=== PATIENT | male | born 1980 | race Caucasian/White ===

== ENCOUNTER → 2018-01-23 12:58 | Outpatient (CLI) | payer MEDICAID, SELFPAY ==
[2018-01-23 13:26] VITALS: PULSE 59
== END ==
PROVIDERS: Family Provider Nurse Practitioner Family; PCP Emergency Medicine; Visit Provider Nurse Practitioner Family
DX: R06.2 Wheezing (principal)
CPT/HCPCS: 94060; 94640

== ENCOUNTER → 2019-07-20 09:52 | Outpatient (CLI) | payer MEDICAID, SELFPAY ==
[2019-07-20 11:51] LABS: Basophils # 0.1 K/mm3 (0-0.2); Basophils % 0.5 % (0.1-2.0); Eosinophils # 0.5 K/mm3 (0.0-0.4); Eosinophils % 4.4 % (0.1-12.0); Hematocrit 50.6 % (42.0-52.0); Hemoglobin 16.7 g/dL (14.1-18.0); Lymphocytes % 18.9 % (10-50); Mean Corpuscular Hemoglobin 33.1 pg (27.0-31.2); Mean Corpuscular Volume 100.3 fl (80-94); Mean Platelet Volume 7.1 fl (7.4-10.4); Monocytes # 0.7 K/mm3 (0.1-1.0); Monocytes % 6.9 % (1.7-9.3); Neutrophils # 7.2 K/mm3 (1.8-7.8); Neutrophils % 69.4 % (37.0-80.0); Platelet Count 217 K/mm3 (142-424); Red Blood Count 5.04 M/mm3 (4.60-6.20); Red Cell Distribution Width 12.6 % (11.5-17.5); White Blood Count 10.4 K/mm3 (4.8-10.8)
[2019-07-20 12:14] LABS: Alanine Aminotransferase 27 U/L (12-78); Albumin Level 3.6 gm/dL (3.4-5.0); Albumin/Globulin Ratio 1.1 (1.1-1.8); Alkaline Phosphatase 58 U/L (46-116); Aspartate Amino Transferase 24 U/L (15-37); Bilirubin,Total 0.3 mg/dL (0.2-1.0); Blood Urea Nitrogen 16 mg/dL (7-18); Calcium 8.8 mg/dL (8.5-10.1); Carbon Dioxide 32 mmol/L (21.0-32.0); Chloride 102 mmol/L (98-107); Creatinine,Serum 1.17 mg/dL (0.70-1.30); Estimated Glomerular Filt Rate 69 ml/min (>60); GFR (African American) 84 ML/MIN (>60); Globulin 3.3 gm/dl (1.3-3.2); Glucose 77 mg/dL (74-106); Sodium 140 mmol/L (136-145); Total Protein,Serum 6.9 gm/dL (6.4-8.2); Valproic Acid, (Depakene) 50.6 ug/mL (50-100)
== END ==
PROVIDERS: Visit Provider Psychiatry & Neurology Psychiatry
DX: F31.9 Bipolar disorder, unspecified (principal)
CPT/HCPCS: 36415; 80053; 80164; 85025

== ENCOUNTER → 2019-08-25 15:19 | Outpatient (CLI) | payer MEDICAID, SELFPAY ==
--- NOTE | 2019-08-25 15:22 | XR_ITS ---
PROCEDURE: XR CHEST 2V CLINICAL HISTORY: cough Cough, congestion, smoker COMPARISON: CXR CHEST(2 VIEWS-NOT PORTABLE) from 05/20/2017 FINDINGS: The cardiomediastinal silhouette and pulmonary vascularity are within normal limits. There is mild hyperinflation. No lobar consolidation or collapse. Minimal lumbar curvature convex left. IMPRESSION: No change with no acute finding Dictated by: Raffaele Stephens MD 08/25/2019 15:51 Electronically signed by Raffaele Stephens MD in [place] 08/25/2019 15:51
== END ==
PROVIDERS: PCP Nurse Practitioner Family; Visit Provider Nurse Practitioner Family
DX: R05 Cough (principal); F17.200 Nicotine dependence, unspecified, uncomplicated; R06.2 Wheezing
CPT/HCPCS: 71046

== ENCOUNTER → 2020-09-06 17:36 | Outpatient (CLI) | payer MEDICAID, SELFPAY ==
[2020-09-06 18:29] LABS: Erythrocyte Sedimentation Rate 1 mm/hr (0-15)
[2020-09-06 18:31] LABS: Chloride 99 mmol/L (98-107); Potassium 4.1 mmoL/L (3.5-5.1); Sodium 141 mmol/L (136-145)
[2020-09-06 18:33] LABS: Alanine Aminotransferase 20 U/L (12-78); Alkaline Phosphatase 50 U/L (38-126); Aspartate Amino Transferase 31 U/L (17-59); Bilirubin,Total 0.5 mg/dl (0.2-1.3); Blood Urea Nitrogen 22 mg/dl (9-20); Estimated Glomerular Filt Rate 67 ml/min (>60); GFR (African American) 81 ML/MIN (>60)
[2020-09-06 18:34] LABS: Albumin Level 4.5 g/dl (3.5-5.0); Albumin/Globulin Ratio 1.5 (1.1-1.8); Anion Gap 14.1 mEq/L (5-15); Calcium 9.9 mg/dl (8.4-10.2); Carbon Dioxide 32 mmol/L (22.0-30.0); Cholesterol 205 mg/dl (140-200); Globulin 3.1 g/dL (1.3-3.2); Glucose 71 mg/dl (74-100); HDL Cholesterol 41 mg/dl (40-60); Total Protein,Serum 7.6 g/dl (6.3-8.2); Triglycerides 217 mg/dl (30-150); VLDL Cholesterol 43 mg/dL (0-40)
[2020-09-06 18:39] LABS: Basophils # 0.2 K/mm3 (0-0.2); Basophils % 1.5 % (0.1-2.0); Eosinophils # 0.7 K/mm3 (0.0-0.4); Eosinophils % 4.4 % (0.1-12.0); Hematocrit 52.9 % (42.0-52.0); Hemoglobin 17.5 g/dL (14.1-18.0); Lymphocytes # 2.4 K/mm3 (0.7-4.5); Lymphocytes % 14.9 % (10-50); Mean Corpuscular HGB Conc 33.1 g/dL (31.8-35.4); Mean Corpuscular Volume 99.6 fl (80-94); Monocytes # 0.8 K/mm3 (0.1-1.0); Monocytes % 5.1 % (1.7-9.3); Neutrophils # 11.8 K/mm3 (1.8-7.8); Neutrophils % 74.1 % (37.0-80.0); Platelet Count 191 K/mm3 (142-424); Red Blood Count 5.31 M/mm3 (4.60-6.20); Red Cell Distribution Width 15.1 % (11.5-17.5); White Blood Count 15.9 K/mm3 (4.8-10.8)
[2020-09-06 18:41] LABS: MANUAL DIFFERENTIAL MANUAL DIFFERENTIAL (MANUAL DIFF)
[2020-09-06 18:45] LABS: Direct LDL Cholesterol 122.44 mg/dL (100-129)
[2020-09-06 18:49] LABS: Free T4 (Free Thyroxine) 0.99 ng/dl (0.78-2.19)
[2020-09-06 18:55] LABS: 25-OH Vitamin D, Total 46.3 ng/mL (30-100)
[2020-09-06 19:04] LABS: Thyroid Stimulating Hormone 4.52 uIU/mL (0.465-4.68)
[2020-09-06 19:26] LABS: Eosinophils % 1 % (0-3); Lymphocytes % 22 % (10-50); Monocytes % 4 % (2-9); Neutrophils % 73 % (42-76); RBC Morphology Normal; Total Cells Counted 100
[2020-09-06 19:27] LABS: Platelet Estimate Normal; Stomatocytes 1+
== END ==
PROVIDERS: Visit Provider Emergency Medicine
DX: R53.83 Other fatigue (principal); E55.9 Vitamin D deficiency, unspecified
CPT/HCPCS: 80053; 80061; 82306; 84439; 84443; 85007; 85025; 85651

== ENCOUNTER → 2020-09-21 10:33 | Outpatient (CLI) | payer MEDICAID, SELFPAY ==
--- NOTE | 2020-09-21 10:44 | XR_ITS ---
PROCEDURE: XR CERVICAL SPINE 5V CLINICAL INDICATION: back pain COMPARISON: No exams were available for comparison FINDINGS: No fracture or dislocation. No lytic or blastic change. There is normal mineralization. The joint spaces are well-preserved. No significant degenerative/arthritic changes. No erosive changes evident. Other findings:There is straightening/reversal of the normal lordosis which may be due to patient positioning or muscle spasm.. The head is slightly tilted toward. IMPRESSION: Reversal of cervical lordosis which could be due to patient positioning muscle spasm otherwise negative Dictated by: Raffaele Stephens MD 09/21/2020 14:49 Raffaele Stephens MD in [place] 09/21/2020 14:49
--- NOTE | 2020-09-21 10:44 | XR_ITS ---
PROCEDURE: XR LUMBAR SPINE MIN 4V CLINICAL INDICATION: back pain Low back pain COMPARISON: No exams were available for comparison FINDINGS: There is mild lumbar scoliosis convex left. Mild retrolisthesis of L4 3 mm. There does appear to be a spondylitic defect involving the pars interarticularis left at L5. The pars interarticularis on the right appears to be. No fracture or dislocation. No lytic or blastic change. There is reversal of the upper lumbar lordosis. Mild degenerative disc disease is present at L2-L3 and L3-L4. IMPRESSION: Lumbar scoliosis with degenerative changes. Possible pars defect on the left at L5. CT or MRI may confirm Dictated by: Raffaele Stephens MD 09/21/2020 14:48 Raffaele Stephens MD in [place] 09/21/2020 14:48
== END ==
PROVIDERS: PCP Emergency Medicine; Visit Provider Emergency Medicine
DX: M54.2 Cervicalgia (principal); M54.5 Low back pain
CPT/HCPCS: 72050; 72110

== ENCOUNTER → 2020-10-14 10:49 | Outpatient (CLI) | payer MEDICAID, SELFPAY ==
--- NOTE | 2020-10-14 10:53 | MR_ITS ---
PROCEDURE: MR LUMBAR SPINE WO CON CLINICAL INDICATION: abn xray Low back pain with bilateral leg pain and numbness and tingling COMPARISON: CR XR LUMBAR SPINE MIN 4V from 09/21/2020 TECHNIQUE: Standard multiplanar multiecho sequences are performed without contrast. 3-D MIP and myelographic images are also rendered and reviewed FINDINGS: There is normal alignment. The spinal cord ends at the L1 level. There is mild lumbar scoliosis convex left. L1-L2: Unremarkable. L2-L3: Mild degenerative disc disease with mild bulging disc and mild facet and ligamentum hypertrophy. L3-L4: Mild degenerative disc disease. L4-5: Mild facet hypertrophic change with mild left foraminal narrowing. L5-S1: There is mild degenerative disc disease with endplate hypertrophic change posteriorly with mild bulging disc. There was a question of a pars defect of the lumbar spine on the left at L5 which is not confirmed on the MRI. There are mild facet hypertrophic changes with mild left foraminal narrowing. There is thinning of the pars interarticularis at L5 on both sides but no definite defect. There is approximately 3 mm anterolisthesis of L5. IMPRESSION: 1. Degenerative changes as described above. Please see above for detailed description at each level. 2. No extruded herniated disc or canal stenosis. Dictated by: Raffaele Stephens MD 10/15/2020 12:11 Raffaele Stephens MD in [place] 10/15/2020 12:11
== END ==
PROVIDERS: PCP Emergency Medicine; Visit Provider Physician Assistant
DX: M43.06 Spondylolysis, lumbar region (principal); M54.9 Dorsalgia, unspecified
CPT/HCPCS: 72148; 76376

== ENCOUNTER 2020-12-18 18:34 | Inpatient (IN) | payer MEDICAID, SELFPAY ==
[2020-12-18] VITALS (16 sets, daily range): BP systolic 116–165; BP diastolic 65–95; PULSE 57–73; RESP 12–24; TEMP 36.6–36.7; O2SAT 93–100; BMI 19.1; BMI 20.8
--- NOTE | 2020-12-18 18:52 | XR_ITS ---
PROCEDURE: XR CHEST 2V CLINICAL HISTORY: PAIN COMPARISON: CR CXR CHEST(2 VIEWS-NOT PORTABLE) from 05/20/2017 CR XR CHEST 2V from 08/25/2019 CR XR RIBS RT MIN 3V W CXR1V from 12/18/2020 FINDINGS: Borderline emphysematous changes seen with hyperexpansion of the lung kaiser. There is no definite pneumonic infiltrate. There is a small right-sided pneumothorax right lower lateral chest with a small amount of fluid at the right costophrenic angle. There is no obvious fracture involving ribs 1 through 10, the 11th and 12th ribs are not adequately evaluated on this film. IMPRESSION: Borderline emphysematous change, small right sided pneumothorax Dictated by: Dr. Blaise Felton MD 12/18/2020 19:54 Dr. Blaise Felton MD in [place] 12/18/2020 19:54
--- NOTE | 2020-12-18 18:52 | XR_ITS ---
PROCEDURE: XR RIBS RT MIN 3V W CXR1V CLINICAL INDICATION: PAIN after a fall on ice COMPARISON: CR CXR CHEST(2 VIEWS-NOT PORTABLE) from 05/20/2017 CR XR CHEST 2V from 08/25/2019 CR XR CHEST 2V from 12/18/2020 FINDINGS: I do not know the time interval between the PA and lateral chest and right rib series however there appears to be interval increase in size of the right-sided pneumothorax since the chest film was obtained. The pneumothorax extends from the apex to the right costophrenic angle. There could be a mild degree of tension. There is a small amount of fluid at the right costophrenic angle. There is no definite right rib fracture identified. There is mild levo scoliotic curvature of the lumbar spine. IMPRESSION: Mild to moderate size right hydro pneumothorax which could be under a mild degree of tension with a small amount of fluid at the right costophrenic angle Dictated by: Dr. Blaise Felton MD 12/18/2020 20:00 Dr. Blaise Felton MD in [place] 12/18/2020 20:00
--- NOTE | 2020-12-18 18:53 | XR_ITS ---
PROCEDURE: XR SCAPULA RT CLINICAL INDICATION: PAIN COMPARISON: No exams were available for comparison FINDINGS: The scapula is intact with no definite fracture seen. The soft tissues right upper chest wall appear grossly normal. Again noted is the right-sided pneumothorax IMPRESSION: Right scapula negative for fracture Dictated by: Dr. Blaise Felton MD 12/18/2020 20:04 Dr. Blaise Felton MD in [place] 12/18/2020 20:04
--- NOTE | 2020-12-18 18:54 | XR_ITS ---
PROCEDURE: XR SHOULDER RT MIN 2V CLINICAL INDICATION: PAIN COMPARISON: No exams were available for comparison FINDINGS: The clavicle is intact and the AC joint appears normal. The humeral head and glenoid are normal. There are no soft tissue calcifications. The right-sided pneumothorax is again noted. IMPRESSION: No acute osseous findings. Dictated by: Dr. Blaise Felton MD 12/18/2020 20:02 Dr. Blaise Felton MD in [place] 12/18/2020 20:02
--- NOTE | 2020-12-18 19:06 | HMH.EDGENADL ---
ED Disposition Clinical Impression: Pneumothorax on right Disposition: Admitted as Observation Condition on Discharge: Good - Critical Care Critical Care Time: No Attestation: On 12/18/20, the high probability of a clinically significant, sudden or life threatening deterioration of the following system(s) required my full and direct attention, intervention and personal management. The time I documented below is in addition to time spent performing reported procedures but includes the following listed in this critical care notation. Medical Decision Making - Medical Records Medical records reviewed: Yes: I reviewed the patient's medical records. - Yifan Inquiry Pt receiving controlled substance: No Vital Signs: 12/18/20 18:36 12/18/20 19:30 12/18/20 20:30 Temperature 98 F Temperature Source Oral Pulse Rate [Radial] 69 67 61 Respiratory Rate 24 16 Blood Pressure [Right Arm] 137/65 145/94 H 143/82 H Blood Pressure Mean [Right Arm] 89 111 102 Blood Pressure Source [Right Arm] Automatic Cuff Automatic Cuff Blood Pressure Position [Right Arm] Sitting Supine Supine 02 Sat by Pulse Oximetry 94 L 100 93 L Oxygen Delivery Method Room Air Nasal Cannula Nasal Cannula Oxygen Flow Rate (LPM) 2 2 12/18/20 21:00 12/18/20 21:30 12/18/20 21:35 Temperature Temperature Source Pulse Rate [Radial] 63 66 66 Respiratory Rate 19 15 14 Blood Pressure [Right Arm] 165/88 H 158/95 H 144/83 H Blood Pressure Mean [Right Arm] 113 116 103 Blood Pressure Source [Right Arm] Automatic Cuff Automatic Cuff Automatic Cuff Blood Pressure Position [Right Arm] Supine Supine Supine 02 Sat by Pulse Oximetry 100 100 99 Oxygen Delivery Method Nasal Cannula Nasal Cannula Nasal Cannula Oxygen Flow Rate (LPM) 2 2 2 12/18/20 21:40 12/18/20 21:45 12/18/20 21:50 Temperature Temperature Source Pulse Rate [Radial] 68 73 67 Respiratory Rate 14 19 17 Blood Pressure [Right Arm] 151/73 H 142/83 H 155/93 H Blood Pressure Mean [Right Arm] 99 102 113 Blood Pressure Source [Right Arm] Automatic Cuff Automatic Cuff Automatic Cuff Blood Pressure Position [Right Arm] Supine Supine Supine 02 Sat by Pulse Oximetry 100 99 100 Oxygen Delivery Method Nasal Cannula Nasal Cannula Nasal Cannula Oxygen Flow Rate (LPM) 2 2 2 - Lab Data Lab results reviewed: Yes: I reviewed the patient's lab results. Lab Results 12/18/20 19:36: WBC 16.8 H, RBC 5.20, Hgb 17.2, Hct 51.4, MCV 98.8 H, MCH 33.0 H, MCHC 33.4, RDW 12.9, Plt Count 187, MPV 7.6, Neut % (Auto) 89.2 H, Lymph % (Auto) 5.1 L, [place] % (Auto) 3.9, Eos % (Auto) 1.5, Baso % (Auto) 0.2, Neut # (Auto) 15.0 H, Lymph # (Auto) 0.9, [place] # (Auto) 0.7, Eos # (Auto) 0.3, Baso # (Auto) 0.0, Total Counted 100, Neutrophils % (Manual) 83 H, Band Neutrophils % 8.0, Lymphocytes % (Manual) 7 L, Monocytes % (Manual) 1 L, Basophils % (Manual) 1.0, Platelet Estimate Normal, Macrocytosis 1+ 12/18/20 19:36: Sodium 138, Potassium 4.0, Chloride 101, Carbon Dioxide 34 H, Anion Gap 7.0, BUN 15, Creatinine 1.00, Estimated Creat Clear 90, Estimated GFR 82, Est GFR ( Amer) 100, Glucose 140 H, Calcium 9.7, Total Bilirubin 0.7, Direct Bilirubin 0.0, Conjugated Bilirubin 0.0, Indirect Bilirubin 0.7, Unconjugated Bilirubin 0.7, AST 45, ALT 36, Alkaline Phosphatase 67, Total Protein 7.7, Albumin 4.6 Result diagrams: 12/18/20 19:36 12/18/20 19:36 Orders (Tests/Meds): ED MEDICATIONS Generic Name Dose Route Start Last Admin Trade Name Freq PRN Reason Stop Dose Admin Hydrocodone Bitart/Acetaminophen 1 - 2 tab 12/18/20 21:53 Hydrocodone/Apap 5/325 Mg Tablet PO 01/17/21 21:52 Q4HP PRN pain Gabapentin 600 mg 12/19/20 09:00 Gabapentin 600mg Tablet PO 01/18/21 08:59 TID DAVE Sodium Chloride 1,000 mls @ 999 mls/hr 12/18/20 19:45 12/18/20 19:42 Sod Chlor 0.9% 1000ml Bag IV 12/18/20 20:45 999 mls/hr .Q1H1M DAVE Administration Lactated Ringer's 1,000 mls @ 999 mls/hr 12/18/20 21:45
--- NOTE | 2020-12-18 19:21 | CT_ITS ---
PROCEDURE: CT ANGIO CHEST CLINCIAL INDICATION: trauma protocol Injury or trauma; fall; blunt; generalized; prior surgery; surgery date: 6+ months; surgery type: Part of small bowel removed. COMPARISON: No exams were available for comparison TECHNIQUE: IV Contrast: 70ML Isovue 370 Axial images obtained with sagittal and coronal reformats. All CT scans at the facility use one or more dose reduction, viz: automated exposure control, ma/kV adjustment per patient size (including targeted exams where dose is matched to indication, i.e. head), or iterative reconstruction technique. FINDINGS: HEART AND MEDIASTINAL STRUCTURES: There is an large right pneumothorax of approximately 40 percent. There is a small area of atelectasis versus infiltrate in the anterior right middle lobe. A small focal area of aspiration or contusion is in the differential. Left lung remains well expanded and clear. There is no pleural effusion. There is no aortic dissection. Diary visualized portions of the thyroid gland are unremarkable. There are calcified lymph nodes in the mediastinum. There is no mediastinal hematoma the major airways are clear. Referred to abdomen pelvis CT dictated on the same day for findings within the upper abdomen. BONY STRUCTURES: No acute bony abnormalities apparent. ADDITIONAL FINDINGS: No other significant abnormalities. IMPRESSION: Large right-sided pneumothorax and small area of probable atelectasis in the anterior right middle lobe, other less likely considerations as described above. Dictated by: Altagracia Crockett 12/19/2020 09:17 Altagracia Crockett in [place] 12/19/2020 09:17
--- NOTE | 2020-12-18 19:22 | CT_ITS ---
PROCEDURE: CT ABDOMEN PELVIS W CON CLINICAL INDICATION: fall, trauma protocol History or trauma; fall; blunt; generalized; prior surgery; surgery date 6+ months; surgery type small bowel removed. Patient's history: Patient fell on ice, trauma protocol COMPARISON: No exams were available for comparison TECHNIQUE: IV Contrast: 100ml Optiray 350 Oral Contrast None Axial images obtained with sagittal and coronal reformats. All CT scans at the facility use one or more dose reduction, viz: automated exposure control, ma/kV adjustment per patient size (including targeted exams where dose is matched to indication, i.e. head), or iterative reconstruction technique. FINDINGS: LOWER THORAX: Partial visualization of a large pneumothorax. Refer to chest CT from the same date for further description. ABDOMEN & PELVIS: The liver, spleen, pancreas, adrenal glands, and kidneys show no acute finding. No intestinal obstruction or free air. No evidence of appendicitis or diverticulitis. No pelvic mass, abnormal fluid collection, or focal inflammatory change of the pelvis. There is mild to moderate left convex scoliotic curvature and the thoracolumbar spine of approximately 23 degrees. There is bilateral L5 spondylolysis with minimal grade 1 L5 on S1 anterolisthesis. IMPRESSION: One. Partial visualization of large right pneumothorax. Thoracolumbar scoliosis. Bilateral L5 spondylolysis with minimal grade 1 L5-S1 anterolisthesis. Dictated by: Altagracia Crockett 12/19/2020 08:03 Altagracia Crockett in [place] 12/19/2020 08:03
[2020-12-18 19:42] LABS: Basophils % 0.2 % (0.1-2.0); Eosinophils # 0.3 K/mm3 (0.0-0.4); Eosinophils % 1.5 % (0.1-12.0); Hematocrit 51.4 % (42.0-52.0); Hemoglobin 17.2 g/dL (14.1-18.0); Lymphocytes # 0.9 K/mm3 (0.7-4.5); Lymphocytes % 5.1 % (10-50); Mean Corpuscular HGB Conc 33.4 g/dL (31.8-35.4); Mean Corpuscular Volume 98.8 fl (80-94); Mean Platelet Volume 7.6 fl (7.4-10.4); Monocytes # 0.7 K/mm3 (0.1-1.0); Monocytes % 3.9 % (1.7-9.3); Neutrophils % 89.2 % (37.0-80.0); Platelet Count 187 K/mm3 (142-424); Red Cell Distribution Width 12.9 % (11.5-17.5); White Blood Count 16.8 K/mm3 (4.8-10.8)
[2020-12-18 19:44] LABS: MANUAL DIFFERENTIAL MANUAL DIFFERENTIAL (MANUAL DIFF)
[2020-12-18 19:53] LABS: Alanine Aminotransferase 36 U/L (12-78); Albumin Level 4.6 g/dl (3.5-5.0); Alkaline Phosphatase 67 U/L (38-126); Aspartate Amino Transferase 45 U/L (17-59); Bilirubin,Indirect 0.7 mg/dL (0.0-0.9); Bilirubin,Total 0.7 mg/dl (0.2-1.3); Bilirubin,Unconjugated 0.7 mg/dL (0.0-1.1); Blood Urea Nitrogen 15 mg/dl (9-20); Calcium 9.7 mg/dl (8.4-10.2); Carbon Dioxide 34 mmol/L (22.0-30.0); Chloride 101 mmol/L (98-107); Creatinine Clearance Estimated 90 mL/min (50-200); Estimated Glomerular Filt Rate 82 ml/min (>60); GFR (African American) 100 ML/MIN (>60); Glucose 140 mg/dl (74-100); Sodium 138 mmol/L (136-145); Total Protein,Serum 7.7 g/dl (6.3-8.2)
[2020-12-18 19:57] LABS: Lymphocytes % 7 % (10-50); Macrocytosis 1+; Monocytes % 1 % (2-9); Neutrophils % 83 % (42-76); Platelet Estimate Normal; Total Cells Counted 100
--- NOTE | 2020-12-18 20:01 | PC.NURSE ---
received radiology phone call; notified of results.
--- NOTE | 2020-12-18 20:06 | PC.NURSE ---
pt to ct via [facility] for scans.
--- NOTE | 2020-12-18 20:23 | PC.NURSE ---
Pt returned from CT
--- NOTE | 2020-12-18 21:31 | XR_ITS ---
PROCEDURE: XR CHEST PORTABLE CLINICAL HISTORY: verify chest tube placement COMPARISON: CR XR CHEST 2V from 08/25/2019 CR XR CHEST 2V from 12/18/[address] ANGIO CHEST from 12/18/2020 CR XR RIBS RT MIN 3V W CXR1V from 12/18/2020 FINDINGS: The cardiomediastinal silhouette and pulmonary vascularity are within normal limits. The right chest tube is seen ending right lower lateral chest with the tip in the right apex. There has been interval almost complete re-expansion of the right lung. The lungs are clear without infiltrates, suspicious nodules, or pleural effusions. No acute bony abnormalities. IMPRESSION: Satisfactory position right chest tube, marked interval improvement right pneumothorax Dictated by: Dr. Blaise Felton MD 12/19/2020 08:45 Dr. Blaise Felton MD in [place] 12/19/2020 08:45
--- NOTE | 2020-12-18 21:31 | PC.NURSE ---
dr piedra at bedside placing chest tube. used 28fr troch and attached to pleurovac. cxr confirm of ct placement. secured with 3 way dressing and sutures. education given per md at bedside. pt verbalized understanding.
--- NOTE | 2020-12-18 21:43 | HMH.PROC ---
[facility] Procedure Note Procedure Note:: Procedure: Right thoracostomy tube placement (28 Faroese) Indication: Right pneumothorax Prep: Chlorhexidine Anesthesia: 1% lidocaine Description: After informed consent was obtained the patient was placed in the supine position. His right chest was prepped and draped in a sterile fashion. After infiltration local anesthetic an incision was made along the seventh interspace in the anterior right axillary line. The deep subcutaneous tissue was then dissected up and over the rib margin. The chest was bluntly entered. A 28 Faroese thoracostomy tube was then placed in position and secured at 17 cm with 0 silk suture. Dressings were secured. Chest x-ray is pending. Complications: No immediate Estimated blood loss: 1 mL
--- NOTE | 2020-12-18 21:46 | HMH.GSHP ---
HPI HPI: This is a 40-year-old gentleman who presented to emergency department after a fall. Evaluation revealed a right-sided pneumothorax and the surgical service was asked to place a chest tube. HPI from emergency department evaluation is forwarded below. From the emergency department evaluation: Chief complaint: PAIN Stated complaint: fell on ice hurt side/ribs Time Seen by Provider: 12/18/20 19:06 Mode of Arrival: Ambulatory Source of Information: Patient, Spouse, Medical Record Limitations: No Limitations Description of Symptoms (Recalled from ER Triage Doc. by RN): TO ED PER [facility] CAR C/O PAIN RT SIDE RIB AREA AND SCAPULA AFTER SLIPPING ON ICE AND FALLING. C/O INCREASED PAIN WITH INSPIRATION AND MOVEMENT. PT DENIES HEAD INJURY OR LOC. - History of Present Illness HPI narrative: fall with rt rib pain at 1700 - mild upper abd pain Onset (ago): hour(s) Location: chest Severity: moderate Associated symptoms: denies other symptoms H History Medical History: Reports:: Anxiety, Depression, Gastroesophageal Reflux Disease(GERD) Denies:: Diabetes Mellitus Type 1, Diabetes Mellitus Type 2 *Have you ever received a pneumonia vaccine?: No *Have you received a flu vaccine this season?: No Laterality Cases: Bilateral: Myringotomy (Ear Tubes), Tonsillectomy Other Surgeries: Yes: Other Amputation: No Fractures: No - *Social History Smoking Status: Current every day smoker Tobacco Type: cigarettes # Packs/Day (cigarettes): 0 Alcohol Intake: never Substance Use Type: denies use *Occupational Status:: other Housing: house Household Members: other *Travel in the last 8 weeks: None - Psychiatric History Pschychiatric History:: Reports:: Anxiety, Depression Family Hx:: No significant family history Review of Systems - Constitutional Denies chills - Eyes Denies change in vision - ENT Denies difficulty swallowing - *Cardiovascular Reports chest pain - *Respiratory Denies cough - *Gastrointestinal Denies nausea, Denies vomiting - *Genitourinary Denies difficulty urinating - *Musculoskeletal Denies deformity - Integumentary/Breasts Denies new lesions - *Neurologic Denies headache(s), Denies seizure-like activity - Psychiatric Denies confusion - Endocrine Denies cold intolerance - Hematologic/Lymphatic Denies easy bleeding - Allergic/Immunologic Denies wheezing Meds Home Medications Medication Instructions Recorded Confirmed Type Gabapentin 600 mg PO TID 12/18/20 12/18/20 History Meloxicam See Rx Instructions .ROUTE .COMPLEX 12/18/20 12/18/20 History Allergies Allergy/AdvReac Type Severity Reaction Status Date / Time No Known Allergies Allergy Verified 12/13/20 14:35 Exam Vital signs and Labs for Last 24 Hours: Temp Pulse Resp BP Pulse Ox 98 F 67 24 145/94 H 100 12/18/20 18:36 12/18/20 19:30 12/18/20 18:36 12/18/20 19:30 12/18/20 19:30 Laboratory Results - last 24 hr 12/18/20 19:36: WBC 16.8 H, RBC 5.20, Hgb 17.2, Hct 51.4, MCV 98.8 H, MCH 33.0 H, MCHC 33.4, RDW 12.9, Plt Count 187, MPV 7.6, Neut % (Auto) 89.2 H, Lymph % (Auto) 5.1 L, [place] % (Auto) 3.9, Eos % (Auto) 1.5, Baso % (Auto) 0.2, Neut # (Auto) 15.0 H, Lymph # (Auto) 0.9, [place] # (Auto) 0.7, Eos # (Auto) 0.3, Baso # (Auto) 0.0, Total Counted 100, Neutrophils % (Manual) 83 H, Band Neutrophils % 8.0, Lymphocytes % (Manual) 7 L, Monocytes % (Manual) 1 L, Basophils % (Manual) 1.0, Platelet Estimate Normal, Macrocytosis 1+ 12/18/20 19:36: Sodium 138, Potassium 4.0, Chloride 101, Carbon Dioxide 34 H, Anion Gap 7.0, BUN 15, Creatinine 1.00, Estimated Creat Clear 90, Estimated GFR 82, Est GFR ( Amer) 100, Glucose 140 H, Calcium 9.7, Total Bilirubin 0.7, Direct Bilirubin 0.0, Conjugated Bilirubin 0.0, Indirect Bilirubin 0.7, Unconjugated Bilirubin 0.7, AST 45, ALT 36, Alkaline Phosphatase 67, Total Protein 7.7, Albumin 4.6 I & O for Last 24 hours: Intake & Output 12/16/20 12/17/20 0
--- NOTE | 2020-12-18 22:57 | PC.NURSE ---
PT ARRIVED VIA STRETCHER FROM ED WITH STAFF TO FLOOR AT [phone]
[2020-12-19] VITALS: BP 139/84; PULSE 63; RESP 16; TEMP 36.5; O2SAT 100
[2020-12-19 03:25] VITALS: BP 136/90; PULSE 61; RESP 20; TEMP 36.7; O2SAT 100
[2020-12-19 05:19] VITALS: BMI 21.5
--- NOTE | 2020-12-19 05:35 | PC.NURSE ---
Pt resting in bed. Has c/o sharp and stabbing pain to (R) side of chest. Medicated per jan. Scattered wheezing noted t/o lung kaiser. (R) base diminished. Chest tube 28 fr with pleurevac @ 20 cm suction and is safely secured to floor. 30 ml drainage noted in collection chamber. Pt was educated on device and safety. Hemostats at bedside. Pt has ate and drank soda this shift without any difficulty. VSS. Pt is currently on 2L NC. No other concerns. Will continue to monitor.
--- NOTE | 2020-12-19 06:00 | XR_ITS ---
PROCEDURE: XR CHEST PORTABLE CLINICAL HISTORY: right PTX COMPARISON: CR XR CHEST 2V from 12/18/2020 CR XR CHEST PORTABLE from 12/18/[address] ANGIO CHEST from 12/18/2020 CR XR RIBS RT MIN 3V W CXR1V from 12/18/2020 FINDINGS: The cardiomediastinal silhouette and pulmonary vascularity are within normal limits. The lungs are clear without infiltrates, suspicious nodules, or pleural effusions. There has been centrally complete re-expansion of the right pneumothorax, the chest tube remains in the right apex. There is a small amount of subcutaneous air in the right chest wall. No acute bony abnormalities. IMPRESSION: Stable right chest 2, re-expansion right pneumothorax Dictated by: Dr. Blaise Felton MD 12/19/2020 08:47 Dr. Blaise Felton MD in [place] 12/19/2020 08:47
--- NOTE | 2020-12-19 07:29 | HMH.PHAVTE ---
[facility] Pharmacy VTE Monitoring - Patient Demographics Admission date: 12/19/20 Report Date: 12/19/20 Time: 07:29 Allergies/Adverse Reactions: Patient Allergies shellfish derived Allergy (Severe, Verified 12/18/20 23:08) Swelling of the Eye Height: 1.85 m Weight: 73.68 kg Patient Problems: Current Active Problems Pneumothorax on right (Acute) - VTE Risk Labs: VTE Related Lab Results Hgb 17.2 g/dL (14.1-18.0) 12/18/20 19:36 Hct 51.4 % (42.0-52.0) 12/18/20 19:36 Plt Count 187 K/mm3 (142-424) 12/18/20 19:36 BUN 15 mg/dl (9-20) 12/18/20 19:36 Creatinine 1.00 mg/dl (0.66-1.25) 12/18/20 19:36 Estimated Creat Clear 90 mL/min (50-200) 12/18/20 19:36 Was VTE Risk Assessment Performed: No VTE Score: 1 VTE Risk Level: Very Low Risk - Prophylaxis VTE Prophylaxis Ordered?: Yes Types of VTE Prophylaxis: TEDS Knee High Location of Applied Device: Bilateral Lower Extremeties
[2020-12-19 07:44] VITALS: BP 144/91; PULSE 48; RESP 22; TEMP 36.4; O2SAT 100
--- NOTE | 2020-12-19 07:54 | HMH.PHAINT ---
MEDICATION RECONCILIATION COMPLETED ON PATIENT USING EXTERNAL FILL HISTORY FROM PHARMACY. -DANIELE SIM, SAMINAD
--- NOTE | 2020-12-19 08:09 | P.PN_ITS ---
Subjective Patient reports: no new complaints Progress Note: A&P (1) Pneumothorax on right Status: Acute Assessment and plan: Overall, doing well status post chest tube placement. Maintain to suction for now Likely transition to waterseal tomorrow morning (pending results of follow-up chest films) Exam Vital signs and Labs for Last 24 Hours: Temp Pulse Resp BP Pulse Ox 97.6 F 48 L 22 144/91 H 100 12/19/20 07:44 12/19/20 07:44 12/19/20 07:44 12/19/20 07:44 12/19/20 07:44 Laboratory Results - last 24 hr 12/18/20 19:36: WBC 16.8 H, RBC 5.20, Hgb 17.2, Hct 51.4, MCV 98.8 H, MCH 33.0 H , MCHC 33.4, RDW 12.9, Plt Count 187, MPV 7.6, Neut % (Auto) 89.2 H, Lymph % (Auto) 5.1 L, [place] % (Auto) 3.9, Eos % (Auto) 1.5, Baso % (Auto) 0.2, Neut # (Auto) 15.0 H, Lymph # (Auto) 0.9, [place] # (Auto) 0.7, Eos # (Auto) 0.3, Baso # (Auto) 0.0, Total Counted 100, Neutrophils % (Manual) 83 H, Band Neutrophils % 8.0, Lymphocytes % (Manual) 7 L, Monocytes % (Manual) 1 L, Basophils % (Manual) 1.0, Platelet Estimate Normal, Macrocytosis 1+ 12/18/20 19:36: Sodium 138, Potassium 4.0, Chloride 101, Carbon Dioxide 34 H, Anion Gap 7.0, BUN 15, Creatinine 1.00, Estimated Creat Clear 90, Estimated GFR 82, Est GFR ( Amer) 100, Glucose 140 H, Calcium 9.7, Total Bilirubin 0.7, Direct Bilirubin 0.0, Conjugated Bilirubin 0.0, Indirect Bilirubin 0.7, Unconjugated Bilirubin 0.7, AST 45, ALT 36, Alkaline Phosphatase 67, Total Protein 7.7, Albumin 4.6 I & O for Last 24 hours: Intake & Output 12/16/20 12/17/20 12/18/20 12/19/20 11:59 11:59 11:59 11:59 Intake Total 2240 / 2240 Output Total 500 / 500 Balance 1740 / 1740 Weight 162 lb 7 oz Microbiology Reports for the Last 24 Hours: Microbiology 12/18/20 20:01 Nasopharyngeal Coronavirus COVID-19 PCR - Final - Constitutional no acute distress - Routine Chest/Breast/Axilla Exam Chest wall: Present: tenderness - *Routine Respiratory Exam Absent: respiratory distress Comments: Chest tube in place. No obvious air leak. - *Routine Cardiovascular Exam Present: bradycardia
[2020-12-19 15:50] VITALS: BP 119/78; PULSE 62; RESP 18; TEMP 37.1; O2SAT 97
[2020-12-19 19:28] VITALS: BP 108/84; PULSE 69; RESP 20; TEMP 37; O2SAT 93
--- NOTE | 2020-12-19 20:08 | PC.NURSE ---
Pt alert and oriented and able to make needs known. Did call earlier today in re to pts pain and speak with BJ to see if Dr. Mora would like to make any changes to pain regimen since pain wasnt being controlled well. There was NNO given and then this evening, pts chest tube dsg is irriatting skin and weeping on small area of left upper dsg. This nurse did apply 4x4's and apply paper tape and made Dr. Mora aware, he agreed this was ok, unless pt was to have further problems with dsg. No crepitus to chest noted. Also, made Dr. Mora aware again of pain regimen and asked if he would like to change anything, he did increase norco to 7.5 mg 1-2 tabs prn q 4 and he also ordered toradol q 6 hours 15 mg. This nurse has encouraged deep breathing intermittently all shift. No problems with chest tube, continous suction continues Pt has had good u/o. CB in reach and VSS.
[2020-12-19 20:40] VITALS: O2SAT 95
--- NOTE | 2020-12-19 20:40 | PC.NURSE ---
RA 89% Sats Return to 2lpm
[2020-12-20 04:00] VITALS: BP 124/71; PULSE 60; RESP 18; TEMP 36.6; O2SAT 100
[2020-12-20 05:00] VITALS: BMI 21.9
--- NOTE | 2020-12-20 06:00 | XR_ITS ---
PROCEDURE: XR CHEST PORTABLE CLINICAL HISTORY: right PTX COMPARISON: CR XR CHEST PORTABLE from 12/18/[address] ANGIO CHEST from 12/18/2020 CR XR RIBS RT MIN 3V W CXR1V from 12/18/2020 CR XR CHEST PORTABLE from 12/19/2020 FINDINGS: The right chest tube is again seen, the right lung is fully expanded. Both lung kaiser are clear of infiltrate. Again noted is a small amount of subcutaneous air in the right chest wall. Cardiac size is normal. IMPRESSION: Stable chest, re-expanded right pneumothorax Dictated by: Dr. Blaise Felton MD 12/20/2020 08:48 Dr. Blaise Felton MD in [place] 12/20/2020 08:48
--- NOTE | 2020-12-20 06:23 | PC.NURSE ---
Pt is A&Ox4 and has ambulated to the side of bed several times this shift to use urinal and tolerated well. Pt has denied any SOB t/o shift. 28fr chest tube in place to right side, pleuro-vac set to suction -20. No vigorous bubbling noted, tidaling present with deep inspiration. Pt had 22ml of serousang accumulation from chest tube this shift. DSG is intact, no bleeding or shadowing present. Left lung CTA, Right lung sounds are diminihsed, and scattered wheezing noted. Continues on 2LPM NC with sats >92%. Pt has completed IS several times t/o shift, best at 1750ml. ABD is soft, flat and pt denied ay N/V/D. Slight rash noted on abd surrounding tape, some tape changed to paper tape and gauze applied underneath. MD Mora aware. Pt has c/o pain several times this shift, medicated with 1x morphine, 2x tab Hydrocodone, and scheduled toradol 2x. Pain relieved or tolerable on reassessments. Pt has voided well this shift. 16g PIV to LAC, has great blood return and flushed withe ease. No s/s of infiltration or infection. Call light within reach.
--- NOTE | 2020-12-20 06:48 | PC.NURSE ---
Morgan Wallace was at bedside and changed pleurovac to water-seal. voiced that he would place order for CXR for 1200 (noon) and if pt become SOB and symptomatic to get stat CXR and place back to suction.
--- NOTE | 2020-12-20 06:57 | HMH.GSPN ---
Subjective Patient reports: no new complaints Progress Note: A&P (1) Pneumothorax on right Status: Acute Assessment and plan: Overall, doing well status post chest tube placement. Chest tube to waterseal Follow-up chest x-ray at 12 noon Exam Vital signs and Labs for Last 24 Hours: Temp Pulse Resp BP Pulse Ox 97.9 F 60 18 124/71 100 12/20/20 04:00 12/20/20 04:00 12/20/20 04:00 12/20/20 04:00 12/20/20 04:00 I & O for Last 24 hours: Intake & Output 12/17/20 12/18/20 12/19/20 12/20/20 11:59 11:59 11:59 11:59 Intake Total 2240 / 2240 1460 / 1460 Output Total 2200 / 2200 1222 / 1222 Balance 40 / 40 238 / 238 Weight 162 lb 7 oz - Constitutional no acute distress - *Routine Respiratory Exam Absent: respiratory distress Comments: No air leak - *Routine Cardiovascular Exam Present: RRR
[2020-12-20 07:34] VITALS: BP 130/75; PULSE 60; RESP 20; TEMP 36.6; O2SAT 100
--- NOTE | 2020-12-20 12:36 | XR_ITS ---
PROCEDURE: XR CHEST PORTABLE CLINICAL HISTORY: Chest tube to water seal COMPARISON: Chest x-ray earlier on the same date. Chest x-ray 12/19/2020, chest x-ray 12/18/2020, chest CT 12/18/2020 FINDINGS: There is redemonstration right-sided chest tube. There is no residual pneumothorax. There is a small of subcutaneous air. The lungs are clear bilaterally. There is no pleural effusion. Cardiac and mediastinal contours are within normal limits. Skeletal structures are unremarkable. IMPRESSION: Chest tube remains in place. Complete resolution of prior right pneumothorax. Dictated by: Altagracia Crockett 12/20/2020 13:36 Altagracia Crockett in [facility] 12/20/2020 13:36
[2020-12-20 16:00] VITALS: BP 135/65; PULSE 80; RESP 19; TEMP 36.8; O2SAT 97
--- NOTE | 2020-12-20 17:57 | PC.NURSE ---
Pt. has done well today. has had no c/o SOB, has c/o pain t/o day- prn medication given with desired effect. Pt has a 28french chest tube to right side. pleurovac is to water seal. Pt had 34 ml of serousang accumulation from chest tube this shift. DSG is intact, no bleeding or shadowing present. Pt still has the blisters from yesterdays tape. Left lung CTA, Right lung sounds are diminihsed, and scattered wheezing noted. Continues on 2LPM NC with sats >92%. Pt has completed IS several times t/o shift, best at 1750ml. vss. will cont. to monitor.
[2020-12-20 19:50] VITALS: O2SAT 97
[2020-12-20 20:00] VITALS: BP 113/80; PULSE 61; RESP 18; TEMP 36.6; O2SAT 95; O2SAT 99
--- NOTE | 2020-12-20 20:18 | PC.NURSE ---
RA sat 96%. left o2 off of pt. O2 on standby.
--- NOTE | 2020-12-20 20:47 | PC.NURSE ---
WAS CALLED INTO THE ROOM BY THE PT. STATED HE COUGHED AND FELT SOMETHING POP. STATES HE IS SOB. OXYGEN NOTED AT 99% ON 2L. DRESSING CDI. NO NEW DRAINAGE. NO BUBBLES NOTED IN PLEURA-VAC. NO CREPITUS NOTED. MD PRINTED CIRCUIT BOARD DRAFTER DR MONTEIRO NOTIFIED. HE STATED TO ADMINISTER PAIN MEDS PER JAN. ASKED IF A XRAY NEEDED TO BE ORDERED AND HE STATED NO. WILL ADMINISTER PAIN MEDS PER MAIN AND CONTINUE TO MONITOR THE PT.
[2020-12-21] VITALS: BP 125/71; PULSE 60; RESP 18; TEMP 36.4; O2SAT 95
--- NOTE | 2020-12-21 01:30 | PC.NURSE ---
PT STATES HE IS HAVING SOME BURNING SENSATIONS. PT HAS DRANK SEVERAL POPS THIS SHIFT. DR BELTRÁN NOTIFIED. ZOFRAN 4MG IV Q 8 HOURS PRN FOR NAUSEA ORDERED.
[2020-12-21 04:00] VITALS: BP 133/76; PULSE 39; RESP 16; TEMP 36.2; O2SAT 100
[2020-12-21 04:59] VITALS: BMI 21.1
--- NOTE | 2020-12-21 05:28 | PC.NURSE ---
A&OX4. PT HAS TOLERATED 2L NC WELL THROUGHOUT SHIFT. RESPIRATIONS REGULAR AND UNLABORED. LUNG SOUNDS DIMINISHED THROUGHOUT. RHONCHI NOTED TO LEFT THROUGHOUT. PT HAS HAD A PRODCUTIVE COUGH WITH THICK COPIOUS AMOUNTS OF SPUTUM NOTED. DARK YELLOW IN COLOR. PT STATES HE SMOKES AND IS WORKING ON QUITING. NEW NICOTINE PATCH APPLIED THIS SHIFT TO L ARM. ACTIVE BOWEL SOUNDS HEARD IN ALL 4 QUADRANTS. SOFT AND NONTENDER ABDOMEN. NO BM REPORTED. PT VOIDS PER URINAL W CLEAR YELLOW URINE NOTED. HAND RUNNING RIGGER EQUAL. +2 PULSES NOTED THROUGHOUT. NO EDEMA NOTED. CHEST TUBE IN PLACE TO R SIDE. WATER SEALED. NO DRAINAGE NOTED TO DRESSING. NO BUBBLES NOTED IN PLEURA VAC THUS FAR. PT HAS REPORTED PAIN SEVERAL TIMES THIS SHIFT AND RECEIVED PAIN MEDS PER MAR. ON REASSESSMENT, ADDITIONAL PAIN MEDS HAD TO BE GIVEN SEVERAL TIMES. PT HAS BEEN UP WALKING AROUND A LOT MORE TODAY PER DAYSHIFT NURSE AND ALSO NOTED WITH THIS NURSE. BED IN LOWEST POSITION. CALL LIGHT WITHIN REACH. VSS. WILL CONTINUE TO MONITOR.
--- NOTE | 2020-12-21 05:49 | PC.NURSE ---
10ML OF SEROSANGENIOUS DRAINAGE NOTED FROM CHEST TUBE THIS SHIFT.
--- NOTE | 2020-12-21 06:00 | XR_ITS ---
PROCEDURE: XR CHEST PORTABLE CLINICAL HISTORY: Right pneumothorax COMPARISON: 12/20/2020 to 240005 chest x-ray, 12/18/[address] FINDINGS: Right chest tube remains in position. There has been complete resolution of right pneumothorax. The lungs are well expanded and clear. There is no pulmonary edema or pleural effusion. Cardiac and mediastinal contours are within normal limits. There is partial visualization minimal subcutaneous emphysema. IMPRESSION: No change in right chest tube. No pneumothorax. Dictated by: Altagracia Crockett MD 12/21/2020 07:52 Altagracia Crockett MD in [facility] 12/21/2020 07:52
[2020-12-21 07:34] VITALS: BP 171/98; PULSE 57; RESP 20; TEMP 36.5; O2SAT 97
[2020-12-21 08:00] VITALS: PULSE 57; RESP 20; O2SAT 97
--- NOTE | 2020-12-21 08:24 | HMH.GSPN ---
Subjective Patient reports: no new complaints Progress Note: A&P (1) Pneumothorax on right Status: Acute Assessment and plan: No recurrent pneumothorax and no air leak. Chest tube has been to waterseal for 24 hours. Remove chest tube Follow-up chest x-ray in 4 to 6 hours Exam Vital signs and Labs for Last 24 Hours: Temp Pulse Resp BP Pulse Ox 97.7 F 57 L 20 171/98 H 97 12/21/20 07:34 12/21/20 07:34 12/21/20 07:34 12/21/20 07:34 12/21/20 07:34 I & O for Last 24 hours: Intake & Output 12/18/20 12/19/20 12/20/20 12/21/20 11:59 11:59 11:59 11:59 Intake Total 2240 / 2240 1700 / 1700 600 / 600 Output Total 2200 / 2200 1222 / 1222 2310 / 2310 Balance 40 / 40 478 / 478 -1710 / -1710 Weight 162 lb 7 oz 165 lb 2 oz 159 lb 9 oz - Constitutional no acute distress - *Routine Respiratory Exam Absent: respiratory distress Comments: No airleak - *Routine Cardiovascular Exam Present: RRR
--- NOTE | 2020-12-21 13:30 | XR_ITS ---
PROCEDURE: XR CHEST 2V CLINICAL HISTORY: right PTX Status post chest tube removal COMPARISON: CT CT ANGIO CHEST from 12/18/2020 CR XR CHEST PORTABLE from 12/20/2020 CR XR CHEST PORTABLE from 12/20/2020 CR XR CHEST PORTABLE from 12/21/2020 FINDINGS: There is a interval removal right chest tube since the prior x-ray. There is trace right apical pneumothorax. There is a small amount of subcutaneous air. There is no pleural effusion. The lungs are clear bilaterally. There is mild curvature of the lower thoracic spine. IMPRESSION: Interval removal of right chest tube. Trace right apical pneumothorax. Dictated by: Altagracia Crockett MD 12/21/2020 15:00 Altagracia Crockett MD in [facility] 12/21/2020 15:00
--- NOTE | 2020-12-21 13:49 | HMH.DCSUM ---
General - General Admission date:: 12/18/20 Discharge date: 12/21/20 HPI HPI: This is a 40-year-old gentleman who presented to emergency department after a fall. Evaluation revealed a right-sided pneumothorax and the surgical service was asked to place a chest tube. HPI from emergency department evaluation is forwarded below. From the emergency department evaluation: Chief complaint: PAIN Stated complaint: fell on ice hurt side/ribs Time Seen by Provider: 12/18/20 19:06 Mode of Arrival: Ambulatory Source of Information: Patient, Spouse, Medical Record Limitations: No Limitations Description of Symptoms (Recalled from ER Triage Doc. by RN): TO ED PER PVT CAR C/O PAIN RT SIDE RIB AREA AND SCAPULA AFTER SLIPPING ON ICE AND FALLING. C/O INCREASED PAIN WITH INSPIRATION AND MOVEMENT. PT DENIES HEAD INJURY OR LOC. - History of Present Illness HPI narrative: fall with rt rib pain at 1700 - mild upper abd pain Onset (ago): hour(s) Location: chest Severity: moderate Associated symptoms: denies other symptoms Hospital Course Hospital Course: The patient was transition from suction to waterseal without difficulty. Follow-up chest films revealed no sign of recurrent pneumothorax. His chest tube was removed on the morning of discharge. Follow-up 2 view chest x-ray over 5 hours later revealed a very small (trace) apical pneumothorax. He was stable with no shortness of air. He wished to go home and stated that he had many people watching over (him) at home . He was deemed appropriate for discharge with close outpatient follow-up. He understands that he needs to return to the emergency department immediately if he develops shortness of air. Otherwise, he will follow-up on the morning after discharge for an outpatient chest x-ray. Condition at discharge: At the time of discharge the patient was afebrile with stable and normal vital signs. He was breathing without difficulty. Objective Vital signs: Temp Pulse Resp BP Pulse Ox 97.7 F 57 L 20 171/98 H 97 12/21/20 07:34 12/21/20 08:00 12/21/20 08:00 12/21/20 07:34 12/21/20 08:00 no acute distress - *Routine HEENT Exam Head: Present: normocephalic Eye: Present: EOMI ENT: Present: mucous membranes moist - *Routine Neck Exam Present: full ROM - Routine Chest/Breast/Axilla Exam Chest wall: Present: tenderness - *Routine Respiratory Exam Absent: respiratory distress - *Routine Cardiovascular Exam Present: RRR - *Routine Abdominal Exam Present: soft - *Routine Rectal Exam Patient deferred: visual exam - *Routine Exam Patient deferred: penile exam - *Routine Extremities Exam Present: full ROM - Routine Back/Spine/Pelvis Exam Back/Spine: Present: full ROM - *Routine Skin Exam Absent: erythema - *Routine Neurological Exam Present: alert - Routine Psychiatric Exam Present: normal affect DS: Diagnosis - Discharge Diagnosis (1) Pneumothorax on right Status: Acute Discharge Plan - Patient Discharge Instructions ACTIVITY: Continue current activity DIET: regular diet Additional Instructions: Repeat chest x-ray in the morning after discharge Leave dressing intact...to be removed in office Patient Instructions: Pneumothorax, DI for Pneumothorax - Follow up Plan Follow up with: Dread Mora MD [Staff Physician] - 12/23/20 Disposition: Home, Self-Assisted Medications: Home Medications Medication Instructions Recorded Confirmed Type Gabapentin 600 mg PO TID 12/18/20 12/18/20 History Meloxicam 15 mg PO DAILYP PRN 12/18/20 12/19/20 History Hydrocod/Acet 5/325 mg [[place] 1 - 2 tab PO Q6HP PRN #13 tab 12/21/20 Rx 5/325mg tablet] Prescriptions/Medication Reconciliation: New Hydrocod/Acet 5/325 mg [[place] 5/325mg tablet] 1 - 2 tab PO Q6HP PRN #13 tab PRN Reason: chest wall pain Continued Meloxicam 15 mg PO DAILYP PRN PRN Reason: Headache Gabapentin 600 mg PO TI
[2020-12-21 15:27] VITALS: BP 148/92; PULSE 74; RESP 20; TEMP 36.9; O2SAT 93
== END 2020-12-21 16:45 | disposition home or self-care (01) | DRG 201 ==
LOC: ER 20:53 → 2ND 22:39
PROVIDERS: Admitting Provider Surgery; Emergency Provider Emergency Medicine; PCP Emergency Medicine; Visit Provider Surgery
DX: S27.0XXA Traumatic pneumothorax, initial encounter (principal); W00.0XXA Fall on same level due to ice and snow, initial encounter; Z72.0 Tobacco use; Z88.8 Allergy status to other drugs, medicaments and biological substances
CPT/HCPCS: 32551; 71045; 71046; 71101; 71275; 73010; 73030; 74177; 80048; 80076; 85007; 85025; 94761; 96365; 96367; 96375; 96376; 99285; J2405; Q9967; U0003

== ENCOUNTER → 2020-12-22 08:06 | Outpatient (CLI) | payer MEDICAID, SELFPAY ==
--- NOTE | 2020-12-22 08:09 | XR_ITS ---
PROCEDURE: XR CHEST 2V CLINICAL HISTORY: pneumothorax COMPARISON: CR XR CHEST 2V from 12/21/2020 FINDINGS: Emphysematous changes are again noted with hyperexpansion lung kaiser. The right chest tube is been removed. Right lung is fully expanded. There is minimal atelectasis in the right infrahilar region IMPRESSION: Underlying emphysematous changes, minimal right basilar atelectasis, no definite remaining pneumothorax seen Dictated by: Dr. Blaise Felton MD 12/22/2020 08:32 Dr. Blaise Felton MD in [place] 12/22/2020 08:32
== END ==
PROVIDERS: PCP Emergency Medicine; Visit Provider Surgery
DX: J93.9 Pneumothorax, unspecified (principal)
CPT/HCPCS: 71046

== ENCOUNTER 2020-12-23 13:05 | Outpatient (CLI) | payer MEDICAID, SELFPAY ==
[2020-12-23 13:24] VITALS: BP 125/96; PULSE 73; RESP 24; TEMP 36.3; O2SAT 98
== END 2020-12-23 13:40 | disposition home or self-care (01) ==
LOC: INF 13:16
PROVIDERS: PCP Emergency Medicine; Visit Provider Surgery
DX: J93.9 Pneumothorax, unspecified (principal)
CPT/HCPCS: 96372

== ENCOUNTER → 2021-03-15 13:04 | Outpatient (CLI) | payer MEDICAID, SELFPAY ==
[2021-03-15 14:11] LABS: Benzodiazepines Screen,Urine Negative ng/ml (<200)
[2021-03-15 14:12] LABS: Amphetamine/Metha Screen,Urine Negative ng/ml (<1000); Barbiturates Screen,Urine Negative ng/ml (<200)
[2021-03-15 14:13] LABS: Cannabinoid Screen,Urine Positive ng/ml (<50); Methadone Screen,Urine Negative ng/ml (<300)
[2021-03-15 14:14] LABS: Cocaine Screen,Urine Negative ng/ml (<300)
[2021-03-15 14:15] LABS: Opiate Screen,Urine Negative ng/ml (<300); Phencyclidine Screen,Urine Negative ng/ml (<25)
== END ==
PROVIDERS: Visit Provider Emergency Medicine
DX: Z79.899 Other long term (current) drug therapy (principal); M47.817 Spondylosis without myelopathy or radiculopathy, lumbosacral region; G62.9 Polyneuropathy, unspecified
CPT/HCPCS: 80305

== ENCOUNTER → 2021-03-17 14:30 | Outpatient (CLI) | payer MEDICAID, SELFPAY ==
--- NOTE | 2021-03-17 14:34 | XR_ITS ---
PROCEDURE: XR CHEST 2V CLINICAL HISTORY: shortness of breath COMPARISON: CT CT ANGIO CHEST from 12/18/2020 CR XR CHEST 2V from 12/21/2020 CR XR CHEST PORTABLE from 12/21/2020 DX XR CHEST 2V from 12/22/2020 FINDINGS: The cardiomediastinal silhouette and pulmonary vascularity are within normal limits. Hyperexpanded lungs. No focal consolidation, pleural effusions or pneumothorax. No acute bony abnormalities. IMPRESSION: No acute findings. Dictated by: Sherie Espinoza 03/17/2021 15:20 Sherie Espinoza in [place] 03/17/2021 15:20
== END ==
PROVIDERS: PCP Emergency Medicine; Visit Provider Emergency Medicine
DX: R06.02 Shortness of breath (principal)
CPT/HCPCS: 71046

== ENCOUNTER → 2021-03-20 11:37 | Outpatient (POV) | payer MEDICAID, SELFPAY ==
[2021-03-20 11:46] VITALS: BP 129/74; PULSE 75; RESP 18; O2SAT 98
--- NOTE | 2021-03-20 12:55 | HMH.PMCON ---
Assessment and Plan (1) Intercostal neuralgia Status: Acute Category: Medical Code(s): G58.8 - Other specified mononeuropathies (2) Occipital neuralgia Status: Acute Category: Medical Code(s): M54.81 - Occipital neuralgia (3) Back Pain Status: Acute Category: Medical Code(s): M54.9 - Dorsalgia, unspecified - Assessment and plan all Dx Assessment and Plan for all problems:: We will schedule a left occipital nerve block for the patient given his symptomology I do believe this would benefit him. I will follow-up with him afterwards reassess his symptoms at that time he is been instructed to call the office if he has any issues prior to his next appointment. Dr. Dyer has reviewed this note and agrees with this plan of care. This note was dictated using voice recognition software and may contain errors or omissions HPI - Data of Consult Requesting Physician: Maria A Morris APRN Primary Care Provider: Je Hearn MD - Consult Narrative Reason for consult: Headaches History of present illness: Mr. Martinez is a 40 year old male who presents today for consultation regards to his continual headaches. He is also suffering from right scapular and intercostal pain secondary to pneumothorax he sustained back in December. Patient biggest complaint today is his left-sided occipital neuralgia. Patient has pain over his left occiput. Patient states that he has up to 3 headaches a day. Patient has tried and failed medications. He is also tried yoga, stretching. Patient currently on Lortab and gabapentin. He is interested in injective therapy. CC: Maria A Morris APRN [facility] History I have reviewed the patient's past medical history: Yes Medical History: Reports:: Anxiety, Depression, Gastroesophageal Reflux Disease(GERD) Denies:: Cancer, Diabetes Mellitus Type 1, Diabetes Mellitus Type 2, MRSA *Have you ever received a pneumonia vaccine?: Yes *Have you received a flu vaccine this season?: Yes Laterality Cases: Bilateral: Myringotomy (Ear Tubes), Tonsillectomy Other Surgeries: Yes: Other Amputation: No Fractures: No - *Social History Smoking Status: Current every day smoker Tobacco Type: cigarettes # Packs/Day (cigarettes): 1 Alcohol Intake: never Alcohol Intake Frequency:: holidays/special occasions only Substance Use Type: marijuana *Occupational Status:: employed, other Housing: house Household Members: other *Travel in the last 8 weeks: None - Psychiatric History Pschychiatric History:: Reports:: Anxiety, Depression Family Hx:: Unable to obtain Review of Systems - Review of Systems ROS General: no recent weight change, no fever, no sleep disturbances Respiratory: no cough, no shortness of air, no recurring pulmonary infections Cardiovascular/Peripheral Vascular: No chest pain, No palpitations, no edema, no shortness of breath. Gastrointestinal: no new onset incontinence, normal bowel movements reported Genitourinary: no new onset incontinence Musculoskeletal: Left occipital neuralgia, right intercostal pain Psychiatric: normal mood/ affect Neurological: [denies new onset weakness in extremities], [denies new onset balance issues] Meds Home Medications Medication Instructions Recorded Confirmed Type Meloxicam 15 mg PO DAILYP PRN 12/18/20 03/15/21 History trazodone 50 mg tablet 50 mg PO HS #30 tab 12/26/20 03/15/21 Rx tizanidine 4 mg capsule 4 mg PO BID PRN #60 cap 02/20/21 03/15/21 Rx gabapentin 600 mg tablet 600 mg PO TID #90 tab 03/15/21 03/15/21 Rx hydrocodone 5 mg-acetaminophen 325 1 tab PO TID #90 tab 03/15/21 03/15/21 Rx mg tablet cariprazine 1.5 mg capsule 1.5 mg PO DAILY #30 cap 03/17/21 Rx Allergies Allergy/AdvReac Type Severity Reaction Status Date / Time adhesive tape Allergy Severe blisters Verified 03/15/21 09:48 shellfish derived Allergy Severe Swelling Verified 03/15/21 09:48 of the Eye Objective Vital signs: Pulse Resp
== END ==
PROVIDERS: PCP Emergency Medicine; Visit Provider Clinical Nurse Specialist Family Health
DX: G58.8 Other specified mononeuropathies (principal); M54.81 Occipital neuralgia; M54.9 Dorsalgia, unspecified
CPT/HCPCS: 99202; G0463

== ENCOUNTER → 2021-03-23 08:53 | Outpatient (CLI) | payer MEDICAID, SELFPAY ==
--- NOTE | 2021-03-23 09:00 | XR_ITS ---
PROCEDURE: XR CERVICAL SPINE W FLEX/EXT CLINICAL INDICATION: neck pain COMPARISON: CR XR CERVICAL SPINE 5V from 09/21/2020 FINDINGS: Normal alignment. No fracture or dislocation. The disc spaces are well preserved. No foramina are widely patent. No cervical rib or other significant anomaly. Flexion and extension views are obtained. No abnormal subluxation in flexion or extension. IMPRESSION: Unremarkable cervical spine with flexion and extension views Dictated by: Raffaele Stephens MD 03/23/2021 11:18 Raffaele Stephens MD in [place] 03/23/2021 11:18
[2021-03-23 09:56] LABS: Basophils # 0.1 K/mm3 (0-0.2); Basophils % 1.4 % (0.1-2.0); Eosinophils # 0.6 K/mm3 (0.0-0.4); Eosinophils % 7.8 % (0.1-12.0); Hematocrit 58.9 % (42.0-52.0); Lymphocytes # 2.3 K/mm3 (0.7-4.5); Lymphocytes % 28.5 % (10-50); Mean Corpuscular HGB Conc 32.7 g/dL (31.8-35.4); Mean Corpuscular Hemoglobin 32.6 pg (27.0-31.2); Mean Corpuscular Volume 99.7 fl (80-94); Mean Platelet Volume 7.3 fl (7.4-10.4); Monocytes # 0.6 K/mm3 (0.1-1.0); Monocytes % 6.8 % (1.7-9.3); Neutrophils # 4.6 K/mm3 (1.8-7.8); Neutrophils % 55.5 % (37.0-80.0); Platelet Count 268 K/mm3 (142-424); Red Blood Count 5.91 M/mm3 (4.60-6.20); Red Cell Distribution Width 13.1 % (11.5-17.5); White Blood Count 8.2 K/mm3 (4.8-10.8)
[2021-03-23 10:00] LABS: Hemoglobin 19.3 g/dL (14.1-18.0)
[2021-03-23 10:16] LABS: Alanine Aminotransferase 24 U/L (12-78); Albumin Level 5.1 g/dl (3.5-5.0); Albumin/Globulin Ratio 1.5 (1.1-1.8); Alkaline Phosphatase 79 U/L (38-126); Aspartate Amino Transferase 27 U/L (17-59); Bilirubin,Total 0.6 mg/dl (0.2-1.3); Blood Urea Nitrogen 18 mg/dl (9-20); Calcium 10.2 mg/dl (8.4-10.2); Carbon Dioxide 36 mmol/L (22.0-30.0); Chloride 101 mmol/L (98-107); Estimated Glomerular Filt Rate 74 ml/min (>60); GFR (African American) 89 ML/MIN (>60); Globulin 3.3 g/dL (1.3-3.2); Glucose 55 mg/dl (74-100); Sodium 142 mmol/L (136-145); Total Protein,Serum 8.4 g/dl (6.3-8.2)
[2021-03-23 11:22] LABS: Vitamin B12 528 pg/mL (239-931)
== END ==
PROVIDERS: Visit Provider Specialist
DX: M54.2 Cervicalgia (principal); R51.9 Headache, unspecified; G89.29 Other chronic pain; R20.0 Anesthesia of skin; R20.2 Paresthesia of skin
CPT/HCPCS: 36415; 72052; 80053; 82607; 82746; 85025

== ENCOUNTER 2021-03-31 10:07 | Day surgery (SDC) | payer MEDICAID, SELFPAY ==
[2021-03-31 10:41] VITALS: BP 135/70; PULSE 71; RESP 18; TEMP 36.2; O2SAT 99; BMI 21.1
[2021-03-31 12:23] VITALS: BP 143/72; PULSE 56; RESP 18; O2SAT 100
[2021-03-31 12:27] VITALS: BP 143/72; PULSE 60; RESP 18; O2SAT 98
[2021-03-31 13:45] VITALS: BP 125/84; PULSE 58; RESP 18; O2SAT 98
--- NOTE | 2021-03-31 14:00 | HMH.PMPROC ---
- Procedure Date: 03/31/21 Time: 14:01 Anesthesiologist:: Aislinn Granados MD Complications:: None Pre-procedure Diagnosis:: Right hip arthritis Post-procedure Diagnosis:: Same Indications for Procedure:: Patient is a very pleasant 65-year-old white male who presents with right hip pain related to right hip arthropathy. He reports the pain radiates into his right buttock. He reports that his right hip is extremely tender to touch and he says that he is unable to sleep at night because of uncontrolled pain. Because of this right hip pain he is having difficulty standing and walking. He also has associated right knee pain, but denies any radiation of pain past his knee. He has undergone knee replacement by Dr. Dewitt few months ago. Of note he has undergone a right SI joint injection and a right trochanteric bursa injection in the past. He continues to note right-sided trochanteric bursa pain today and is interested in another injection to this site. Procedure Details:: Occipital nerve block left side Informed consent was obtained, the risk and benefits of the procedure were explained to the patient. Patient was taken to the procedure room. The left occiput was prepped using ChloraPrep. A 25-gauge needle was used and injected into the distribution of the right greater and lesser occipital nerves. We injected 5 mL of bupivacaine 0.25% and Depo-Medrol 40 mg. The patient tolerated the procedure well with no complications. Plan and Disposition:: Patient was discharged home in stable condition. We will follow up in 2 weeks for reevaluation.
== END 2021-03-31 13:45 | disposition home or self-care (01) ==
LOC: SC.PAINP 10:08
PROVIDERS: PCP Emergency Medicine; Visit Provider Anesthesiology Pain Medicine
DX: M16.11 Unilateral primary osteoarthritis, right hip (principal); K21.9 Gastro-esophageal reflux disease without esophagitis; F41.9 Anxiety disorder, unspecified; F32.9 Major depressive disorder, single episode, unspecified; J45.909 Unspecified asthma, uncomplicated; G43.909 Migraine, unspecified, not intractable, without status migrainosus; F31.9 Bipolar disorder, unspecified; Z72.0 Tobacco use
CPT/HCPCS: 64405; J1040

== ENCOUNTER → 2021-04-11 16:20 | Outpatient (CLI) | payer MEDICAID, SELFPAY ==
--- NOTE | 2021-04-11 16:20 | MR_ITS ---
PROCEDURE: MR HEAD/BRAIN WO CON CLINICAL INDICATION: headache COMPARISON: No exams were available for comparison TECHNIQUE: Routine multiplanar multi echo sequences are performed without gadolinium enhancement. FINDINGS: No midline shift, mass effect, or intracranial hemorrhage apparent. No evidence of acute infarction. The cerebellopontine angles, cerebellum, brainstem, and mid brain have an unremarkable appearance. There is mild prominence of the lateral ventricles especially in the occipital horn region. The hippocampal gyri are unremarkable. The temporal horns of the lateral ventricles are not significantly dilated. The 3rd and 4th ventricles are within normal limits. There is a small T2 white matter hyperintensity in the left frontal lobe which is nonspecific. The pituitary, optic chiasm, corpus callosum, and craniocervical junction have an unremarkable appearance. There is severe mucosal thickening of the ethmoid sinuses and the roof of the maxillary sinuses as well as mucosal thickening of the sphenoid sinus and to lesser degree the frontal sinus. No mastoid effusion. IMPRESSION: 1. There is prominence of the lateral ventricles especially occipital horns. The 3rd and 4th ventricle are normal in size. This ventricular prominence is of questionable clinical significance. Does the patient have any old studies at an outside institution for comparison? None are available at this institution. Consider short-term follow-up in 3 months to confirm stability if no old exams are available. 2. Sinusitis Dictated by: Raffaele Stephens MD 04/12/2021 12:21 Raffaele Stephens MD in [place] 04/12/2021 12:21
== END ==
PROVIDERS: PCP Emergency Medicine; Visit Provider Specialist
DX: G89.29 Other chronic pain (principal); R51.9 Headache, unspecified
CPT/HCPCS: 70551

== ENCOUNTER 2021-04-25 08:02 | Outpatient (RCR) | payer MEDICAID, SELFPAY ==
--- NOTE | 2021-04-25 09:02 | HMH.PTOPEV ---
PT Outpatient Evaluation Rehab PT Outpatient Evaluation Start: 04/25/21 08:07 Freq: Status: Active Protocol: Document 04/25/21 08:42 DENICE (Rec: 04/25/21 09:00 SERGOLIAM [id number]) Electronically Signed By Giancarlo Stratton, PT 04/25/21 08:42 Outpatient Therapy Subjective History Subjective History Patient is a 40 year old male presenting to outpatient PT with reports of chronic LBP and cervcial spine pain. Patient reports intermittent BLE/BUE radicular symptoms. Patient reports chronic migranes in the cervicogenic distribution. Most recent cervical imaging negative. Most recent lumbar imaging indicates multi-level degenerative changes and scoliosis. Comorbidities indicate hx of pneumothorax and colon resection. Chief Complaint Pain,Stiff,Paresthesia Symptom Type Ache,Dull,Numbness,Tingling Symptoms Relieved By Rest/Positioning,OTC Meds Symptoms Aggravated By Standing,Bending/Stooping, Physical Activity,Walking, Lifting Prior Functional Limitations Reaching,Lifting,Housework, Standing,Squatting,Recreation Activity,Walking,Bending/ Stooping Current Functional Limitations Reaching,Lifting,Housework, Standing,Squatting,Recreation Activity,Walking,Bending/ Stooping Symptom Description Constant but Variable Level of pain today (0-10) 5 Pain scale - at its best (0-10) 5 Pain scale - at its worst (0-10) 9 Cervical Eval Palpation Cervical Muscles R Cervical Paraspinal,L Cervical Paraspinal,R Suboccipital,L Suboccipital,R CT Junction,R Upper Trapezius, L Upper Trapezius Cervical/Thoracic Palpation Findings Tenderness Posture Head/C-Spine Posture Sitting Position C-Spine Flattened Head/C-Spine Posture Standing Position C-Spine Flattened Flexibility Deficits Upper Trapezius Muscle Length (R) Moderate Tightness,(L) Moderate Tightness Levaetor Scapulae Muscle Length (R) Moderate Tightness,(L) Moderate Tightness Pectoralis Minor Muscle Length (R) Moderate Tightness,(L)
== END 2021-04-25 08:05 | disposition home or self-care (01) ==
LOC: PT 08:02
PROVIDERS: PCP Emergency Medicine; Visit Provider Emergency Medicine
DX: R51.9 Headache, unspecified (principal); M54.2 Cervicalgia; G89.29 Other chronic pain; R20.0 Anesthesia of skin; R20.2 Paresthesia of skin
CPT/HCPCS: 97163

== ENCOUNTER → 2021-05-26 13:55 | Outpatient (CLI) | payer MEDICAID, SELFPAY ==
[2021-05-26 14:35] LABS: Amphetamine/Metha Screen,Urine Negative ng/ml (<1000)
[2021-05-26 14:37] LABS: Cannabinoid Screen,Urine Positive ng/ml (<50)
[2021-05-26 14:38] LABS: Barbiturates Screen,Urine Negative ng/ml (<200); Benzodiazepines Screen,Urine Negative ng/ml (<200)
[2021-05-26 14:39] LABS: Cocaine Screen,Urine Negative ng/ml (<300)
[2021-05-26 14:40] LABS: Methadone Screen,Urine Negative ng/ml (<300); Opiate Screen,Urine Negative ng/ml (<300)
[2021-05-26 14:41] LABS: Phencyclidine Screen,Urine Negative ng/ml (<25)
== END ==
PROVIDERS: Visit Provider Emergency Medicine
DX: M54.9 Dorsalgia, unspecified (principal)
CPT/HCPCS: 80305

== ENCOUNTER → 2021-07-20 16:55 | Outpatient (CLI) | payer MEDICAID, SELFPAY ==
--- NOTE | 2021-07-20 16:56 | MR_ITS ---
PROCEDURE: MR HEAD/BRAIN WO CON CLINICAL INDICATION: 3-month fu to confirm stability, abnormal brainMRI Headache and neck pain COMPARISON: MR MR HEAD/BRAIN WO CON from 04/11/2021 TECHNIQUE: Routine multiplanar multi echo sequences are performed without gadolinium enhancement. FINDINGS: No restricted diffusion. No midline shift or mass effect. The cerebellopontine angles have an unremarkable appearance. No evidence of acute infarction. Unremarkable white matter appearance. There remains prominence of the lateral ventricles having a similar appearance compared to the previous exam. Unremarkable appearing 3rd and 4th ventricles. The pituitary, optic chiasm, corpus callosum, and craniocervical junction have an unremarkable appearance. There is extensive mucosal thickening of the paranasal sinuses greatest in the ethmoid sinus region. There is rightward nasal septal deviation. IMPRESSION: Stable appearance of the brain. There remains prominence of the lateral ventricles not significantly changed. Sinusitis. Dictated by: Raffaele Stephens MD 07/21/2021 09:02 Raffaele Stephens MD in [place] 07/21/2021 09:02
== END ==
PROVIDERS: PCP Emergency Medicine; Visit Provider Nurse Practitioner Family
DX: R51.9 Headache, unspecified (principal); G89.29 Other chronic pain; J32.4 Chronic pansinusitis; R93.0 Abnormal findings on diagnostic imaging of skull and head, not elsewhere classified
CPT/HCPCS: 70551

== ENCOUNTER → 2021-07-25 18:40 | Outpatient (CLI) | payer MEDICAID, SELFPAY ==
[2021-07-25 20:08] LABS: Amphetamine/Metha Screen,Urine Negative ng/ml (<1000)
[2021-07-25 20:10] LABS: Barbiturates Screen,Urine Negative ng/ml (<200)
[2021-07-25 20:11] LABS: Benzodiazepines Screen,Urine Negative ng/ml (<200); Cannabinoid Screen,Urine Positive ng/ml (<50)
[2021-07-25 20:12] LABS: Methadone Screen,Urine Negative ng/ml (<300); Opiate Screen,Urine Negative ng/ml (<300)
[2021-07-25 20:13] LABS: Cocaine Screen,Urine Negative ng/ml (<300)
[2021-07-25 20:14] LABS: Phencyclidine Screen,Urine Negative ng/ml (<25)
== END ==
PROVIDERS: Visit Provider Emergency Medicine
DX: Z79.899 Other long term (current) drug therapy (principal)
CPT/HCPCS: 80305

== ENCOUNTER → 2021-09-22 19:48 | Outpatient (CLI) | payer MEDICAID, SELFPAY ==
[2021-09-22 22:25] LABS: Amphetamine/Metha Screen,Urine Negative ng/ml (<1000); Barbiturates Screen,Urine Negative ng/ml (<200)
[2021-09-22 22:26] LABS: Benzodiazepines Screen,Urine Negative ng/ml (<200)
[2021-09-22 22:27] LABS: Cannabinoid Screen,Urine Positive ng/ml (<50)
[2021-09-22 22:28] LABS: Cocaine Screen,Urine Negative ng/ml (<300); Methadone Screen,Urine Negative ng/ml (<300)
[2021-09-22 22:29] LABS: Opiate Screen,Urine Negative ng/ml (<300); Phencyclidine Screen,Urine Negative ng/ml (<25)
== END ==
PROVIDERS: Visit Provider Emergency Medicine
DX: M54.50 Low back pain, unspecified (principal)
CPT/HCPCS: 80305

== ENCOUNTER → 2021-11-21 14:13 | Outpatient (CLI) | payer MEDICAID, SELFPAY ==
[2021-11-21 14:55] LABS: Amphetamine/Metha Screen,Urine Negative ng/ml (<1000); Barbiturates Screen,Urine Negative ng/ml (<200)
[2021-11-21 14:56] LABS: Benzodiazepines Screen,Urine Negative ng/ml (<200)
[2021-11-21 14:57] LABS: Cocaine Screen,Urine Negative ng/ml (<300)
[2021-11-21 14:58] LABS: Methadone Screen,Urine Negative ng/ml (<300)
[2021-11-21 14:59] LABS: Opiate Screen,Urine Positive ng/ml (<300)
[2021-11-21 15:00] LABS: Phencyclidine Screen,Urine Negative ng/ml (<25)
[2021-11-21 15:12] LABS: Cannabinoid Screen,Urine Positive ng/ml (<50)
== END ==
PROVIDERS: Visit Provider Emergency Medicine
DX: Z79.899 Other long term (current) drug therapy (principal)
CPT/HCPCS: 80305

== ENCOUNTER → 2022-01-05 15:34 | Outpatient (CLI) | payer MEDICAID, SELFPAY ==
--- NOTE | 2022-01-05 15:46 | XR_ITS ---
FINAL REPORT CLINICAL HISTORY: c/o back pain more on the left side FINDINGS: 5 views of the lumbar spine were obtained. There is no evidence of fracture or dislocation. The vertebral alignment is normal. There is leftward curvature. There are mild degenerative changes with osteophytes. No paraspinous soft tissue abnormalities identified. IMPRESSION: Leftward curvature. Mild degenerative change. Reviewed, Interpreted and Dictated by Pola England III, MD Transcribed by Allyssa Crawford Authenticated by Pola England III, MD on 01/05/2022 04:24:23 PM [facility]
--- NOTE | 2022-01-05 15:46 | XR_ITS ---
FINAL REPORT CLINICAL HISTORY: coccyx pain FINDINGS: SACRUM COCCYX 2 views were obtained. There is no acute fracture or dislocation. The joint spaces are intact. There is no soft tissue abnormality. IMPRESSION: No acute bony abnormality. Reviewed, Interpreted and Dictated by Pola England III, MD Transcribed by Allyssa Crawford Authenticated by Pola England III, MD on 01/05/2022 04:24:28 PM [facility]
== END ==
PROVIDERS: PCP Emergency Medicine; Visit Provider Emergency Medicine
DX: M53.3 Sacrococcygeal disorders, not elsewhere classified (principal); M54.50 Low back pain, unspecified
CPT/HCPCS: 72110; 72220

== ENCOUNTER → 2022-01-15 16:39 | Outpatient (CLI) | payer MEDICAID, SELFPAY ==
[2022-01-15 14:41] LABS: Basophils # 0.1 K/mm3 (0-0.2); Basophils % 1.2 % (0.1-2.0); Eosinophils # 0.5 K/mm3 (0.0-0.4); Eosinophils % 6.6 % (0.1-12.0); Hematocrit 51.5 % (42.0-52.0); Hemoglobin 16.8 g/dL (14.1-18.0); Lymphocytes # 1.6 K/mm3 (0.7-4.5); Lymphocytes % 22.4 % (10-50); Mean Corpuscular HGB Conc 32.5 g/dL (31.8-35.4); Mean Corpuscular Hemoglobin 33.1 pg (27.0-31.2); Mean Corpuscular Volume 101.8 fl (80-94); Mean Platelet Volume 8.2 fl (7.4-10.4); Monocytes # 0.3 K/mm3 (0.1-1.0); Monocytes % 4.5 % (1.7-9.3); Neutrophils # 4.6 K/mm3 (1.8-7.8); Neutrophils % 65.3 % (37.0-80.0); Platelet Count 294 K/mm3 (142-424); Red Blood Count 5.06 M/mm3 (4.60-6.20); Red Cell Distribution Width 12.9 % (11.5-17.5); White Blood Count 7.1 K/mm3 (4.8-10.8)
[2022-01-15 15:08] LABS: Erythrocyte Sedimentation Rate 7 mm/hr (0-15)
[2022-01-15 15:54] LABS: C-Reactive Protein 7.5 mg/L (0-4)
[2022-01-15 16:48] LABS: Amphetamine/Metha Screen,Urine Negative ng/ml (<1000)
[2022-01-15 16:49] LABS: Barbiturates Screen,Urine Negative ng/ml (<200)
[2022-01-15 16:50] LABS: Benzodiazepines Screen,Urine Negative ng/ml (<200); Cannabinoid Screen,Urine Positive ng/ml (<50)
[2022-01-15 16:51] LABS: Cocaine Screen,Urine Negative ng/ml (<300); Methadone Screen,Urine Negative ng/ml (<300)
[2022-01-15 16:52] LABS: Opiate Screen,Urine Negative ng/ml (<300)
[2022-01-15 16:53] LABS: Phencyclidine Screen,Urine Negative ng/ml (<25)
== END ==
PROVIDERS: Visit Provider Emergency Medicine
DX: R53.83 Other fatigue (principal); Z79.899 Other long term (current) drug therapy
CPT/HCPCS: 80305; 85025; 85651; 86140

== ENCOUNTER → 2022-01-29 07:25 | Outpatient (CLI) | payer MEDICAID, SELFPAY ==
--- NOTE | 2022-01-29 07:31 | MR_ITS ---
FINAL REPORT CLINICAL HISTORY: back pain. lbp worse on lt side. bilateral leg pain, numbness, and tingling x3-6months. no recent injury or trauma. COMPARISON: 10/14/2020 FINDINGS: Multiplanar MR imaging of the lumbar spine was performed without contrast. There is levoscoliosis. On the sagittal T2-weighted images, disc degeneration is seen at multiple levels. There is mild anterolisthesis of L5 on S1. There is no evidence of fracture. The conus has an unremarkable appearance. T12-L1: There is no significant canal stenosis or neuroforaminal narrowing. L1-2: There is no significant canal stenosis or neuroforaminal narrowing. L2-3: There is an annular bulge present. There is mild left neuroforaminal narrowing. There is no significant canal stenosis. L3-4: There is an annular bulge present. There is no significant canal stenosis or neuroforaminal narrowing. L4-5: There is an annular bulge present. There is no significant canal stenosis or neuroforaminal narrowing. L5-S1: There is an annular bulge present. There is facet arthropathy. There are vertebral osteophytes. There is a small central disc protrusion. There is mild left neuroforaminal narrowing. This appears stable as compared to the prior exam. IMPRESSION: Multilevel degenerative disc disease, most pronounced at L5-S1, which appears stable as compared to 10/14/2020. Reviewed, Interpreted and Dictated by Pola England III, MD Transcribed by April Anderson Authenticated by Pola England III, MD on 01/29/2022 09:09:[address] [facility]
== END ==
PROVIDERS: PCP Emergency Medicine; Visit Provider Emergency Medicine
DX: M54.9 Dorsalgia, unspecified (principal); M54.50 Low back pain, unspecified
CPT/HCPCS: 72148; 76376

== ENCOUNTER → 2022-02-26 11:37 | Outpatient (POV) | payer MEDICAID, SELFPAY ==
[2022-02-26 12:07] VITALS: BP 130/82; PULSE 81; RESP 18; TEMP 36.3; O2SAT 100; BMI 21.1
--- NOTE | 2022-02-26 12:09 | P.CONS_ITS ---
Assessment and Plan (1) Degenerative joint disease (DJD) of lumbar spine Status: Chronic Category: Medical Code(s): M47.816 - Spondylosis without myelopathy or radiculopathy, lumbar region (2) Lumbar radicular pain Status: Chronic Category: Medical Code(s): M54.16 - Radiculopathy, lumbar region - Assessment and plan all Dx Assessment and Plan for all problems:: Patient is a pleasant 41-year-old white male that comes to our clinic today for initial evaluation regarding low back pain as well as bilateral hip and leg radicular symptoms at times. Patient states the pain is 8/10. He reports the pain is significant in terms of low back pain while standing and/or sitting for any length of time. He also complains of bilateral hip and leg radicular symptoms to the knee. I discussed in detail with the patient his recent lumbar MRI which shows degenerative disc disease lumbar spine multilevels. Discussed treatment options with the patient in terms of lumbar epidural steroid injection at the L4-5 level. He wishes to proceed. HPI - Data of Consult Patient: new to practice Consult date: 02/26/22 Requesting Physician: David Benson CRNA - Consult Narrative Reason for consult: Lumbar back pain. Bilateral hip and leg radicular symptoms. History of present illness: Mr. Martinez is a 41 year old male CC: David Benson CRNA [facility] History Medical History: Reports:: Anxiety, Depression, Gastroesophageal Reflux Disease(GERD), Migraine Denies:: Cancer, Diabetes Mellitus Type 1, Diabetes Mellitus Type 2, MRSA, Seizures *Have you ever received a pneumonia vaccine?: No *Have you received a flu vaccine this season?: No Other Medical History: Denies: Blood Transfusion Reaction Laterality Cases: Bilateral: Myringotomy (Ear Tubes), Tonsillectomy Other Surgeries: Yes: Colon Resection, Other Amputation: No Fractures: No - *Social History Smoking Status: Current every day smoker Tobacco Type: cigarettes # Packs/Day (cigarettes): 1 Alcohol Intake: current Alcohol Intake Frequency:: holidays/special occasions only Substance Use Type: marijuana *Occupational Status:: employed Housing: house Household Members: significant other *Travel in the last 8 weeks: Inside the [place] - Psychiatric History Pschychiatric History:: Reports:: Anxiety, Depression Family Hx:: Unable to obtain Meds Home Medications Medication Instructions Recorded Confirmed Type propranolol 40 mg tablet 40 mg PO BID #60 tab NS MDD 80 mg 10/09/21 01/15/22 Rx gabapentin 600 mg tablet 600 mg PO TID #90 tab 01/15/22 01/15/22 Rx hydrocodone 7.5 mg-acetaminophen 1 tab PO QID PRN #120 tab 01/15/22 01/15/22 Rx 325 mg tablet Allergies Allergy/AdvReac Type Severity Reaction Status Date / Time adhesive tape Allergy Severe blisters Verified 01/15/22 11:07 shellfish derived Allergy Severe Swelling Verified 01/15/22 11:07 of the Eye Opioid Risk Tool - Opioid Risk Tool-Male Family hx alcohol abuse: Y Family hx illegal drugs: Y Family hx rx drug abuse: N Personal hx alcohol abuse: N Personal hx illegal drugs: N Personal hx rx drug abuse: N Age: 16-45 Hx of sexual abuse: N Mental health issues-ADD,OCD,Bipolar, etc: Y Hx of depression: N Male Risk Score: 9
== END ==
PROVIDERS: Visit Provider Nurse Anesthetist, Certified Registered
DX: M47.896 Other spondylosis, lumbar region (principal); M54.16 Radiculopathy, lumbar region
CPT/HCPCS: 99202; G0463

== ENCOUNTER 2022-03-16 10:46 | Day surgery (SDC) | payer MEDICAID, SELFPAY ==
[2022-03-16 11:02] VITALS: BP 128/70; PULSE 66; RESP 18; TEMP 36.8; O2SAT 99; BMI 19.8
--- NOTE | 2022-03-16 11:17 | HMH.PMPROC ---
- Procedure Date: 03/16/22 Time: 11:17 Anesthesiologist:: David Benson CRNA Complications:: None Pre-procedure Diagnosis:: Degenerative disc disease lumbar spine. Lumbar radiculopathy symptoms. Post-procedure Diagnosis:: Same Indications for Procedure:: Patient is a pleasant 41-year-old male who presents to our injection clinic today for lumbar epidural steroid injection at the L4-5 level. Patient has been having some low back pain as well as bilateral hip and leg radicular symptoms for some time. He rates the pain 7/10. Procedure Details:: Procedure: Lumbar epidural steroid injection under fluoroscopy Informed consent was obtained and the risks and benefits of the procedure were explained to the patient. The patient was taken to the procedure room and noninvasive monitors placed, including noninvasive blood pressure cuff and pulse oximeter. The back was viewed using C-arm Fluoroscopy and prepped using Betadine as a cleansing solution and the L4-L5 interspace was palpated. Skin and subcutaneous tissues were anesthetized using lidocaine 1.5% and a 25-gauge needle. After this, an 18-gauge Touhy epidural needle was placed into the L4-L5 interspace and advanced using fluoroscopic guidance and loss of resistance to air until the epidural space was encountered. After confirmation of needle placement in the epidural space, with dye, a solution containing lidocaine 1.5%, 4 mL and Depo-Medrol 80 mg were incrementally injected into the lumbar epidural space. The patient tolerated the procedure well with no complications. The patient was observed in the Pain Clinic and then discharged home neurologically intact. Plan and Disposition:: Patient was discharged without incident.
[2022-03-16 11:19] VITALS: BP 120/69; PULSE 80; RESP 18; O2SAT 98
[2022-03-16 11:21] VITALS: BP 130/76; PULSE 79; RESP 18; O2SAT 98
[2022-03-16 11:27] VITALS: BP 121/79; PULSE 61; RESP 20; O2SAT 99
== END 2022-03-16 11:28 | disposition home or self-care (01) ==
LOC: SC.PAINP 10:46
PROVIDERS: PCP Emergency Medicine; Visit Provider Nurse Anesthetist, Certified Registered
DX: M51.16 Intervertebral disc disorders with radiculopathy, lumbar region (principal); F41.9 Anxiety disorder, unspecified; F32.A Depression, unspecified; K21.9 Gastro-esophageal reflux disease without esophagitis; G43.909 Migraine, unspecified, not intractable, without status migrainosus; Z72.0 Tobacco use; F12.90 Cannabis use, unspecified, uncomplicated
CPT/HCPCS: 62323; J1040

== ENCOUNTER → 2022-04-10 13:22 | Outpatient (POV) | payer MEDICAID, SELFPAY ==
[2022-04-10 13:29] VITALS: BP 132/80; PULSE 79; RESP 18; TEMP 37.1; O2SAT 100; BMI 19.8
--- NOTE | 2022-04-10 14:16 | HMH.PAINSOAP ---
[facility] Pain Management SOAP Note Subjective:: Patient is a pleasant 42-year-old male who presents today for follow-up after a lumbar epidural steroid injection at L4-L5 on March 16, 2022. Patient is currently being treated for degenerative disc disease of lumbar spine with lumbar radiculopathy symptoms. After procedure, patient had significant relief of 80 to 90% for about a week. He states that his pain is back to baseline now and rates his pain a 7 out of 10. Pain is worse with any lumbar flexion, extension, rotation. He is also complaining of pain around his left hip that radiates down to his left leg. In the past, patient has had SI injections and greater trochanteric bursa injections on the right hip but not on the left. He cannot tolerate any prolonged activity such as sitting, standing, and walking. Additionally, patient is complaining of pain around the left occiput. He had a left occipital nerve block on March 31, 2021 that provided significant relief. He states that he has pain that radiates from the back of his ear to the front. It does radiate down to his left neck at times as well. Yifan [id number], MEQ 30. Review of Systems: General: No recent weight changes, no fever, no sleep disturbances Respiratory: No cough, no shortness of air, no recurring pulmonary infections Cardiovascular/peripheral vascular: No chest pain, no palpitations, no edema, no shortness of breath Gastrointestinal: No new onset incontinence, normal bowel movements reported Genitourinary: No new onset incontinence Musculoskeletal: Low back pain, neck pain Psychiatric: [Normal mood/affect] Neurological: [Denies weakness in extremities], [denies balance issues] Objective:: Physical Exam: General: Alert and oriented x3, no acute distress, pleasant and cooperative Lungs: Respirations even and unlabored, symmetrical chest expansion Eyes: PERRL Musculoskeletal: Flexion and extension of lumbar [spine] somewhat guarded secondary to pain, [antalgic gait noted]; left SI is positive for BEN, Tiff's, Lamona's, Gaenslen's, compression, and distraction. Tenderness to palpation around the left occiput Neurological: Speech clear, no gross sensory deficit Assessment:: Degenerative disease of lumbar spine with lumbar radiculopathy symptoms, sacroiliitis, left occipital neuralgia Plan:: Patient had 1 week of significant relief after his lumbar epidural steroid injection. Patient is still complaining of pain around his left upper buttock that radiates down to his left leg. SI exam is positive. We will schedule the patient for a left SI injection. Risks and benefits of the procedure have been explained to the patient. Patient would like to proceed with the procedure. Patient is tender to palpation around the left occipital nerve. Patient has had left occipital nerve block in the past that significantly helped the patient. We will schedule the patient for a repeat left occipital nerve block. I will also refer this patient for physical therapy for further evaluation of low back pain and sacroiliitis. Patient has been instructed to contact the clinic with any concerns before the next appointment. Dr. Dyer has reviewed this note and agrees with this plan of care. This note was dictated using voice recognition software and make contain errors or omissions. [facility] History Medical History: Reports:: Anxiety, Depression, Gastroesophageal Reflux Disease(GERD), Hypertension, Migraine Denies:: Cancer, Diabetes Mellitus Type 1, Diabetes Mellitus Type 2, MRSA, Seizures *Have you ever received a pneumonia vaccine?: No *Have you received a flu vaccine this season?: No Other Medical History: Denies: Blood Transfusion Reaction Laterality Cases: Bilateral: Myringotomy (Ear Tubes), Tonsillectomy Other Surgeries: Yes: Colon Resection, Other Amputation: No Fractures: No - *Social History Smoking Status: Current every day smoker Tobacco Type: cigarettes # Packs/Day (cigarettes): 1
== END ==
PROVIDERS: Visit Provider Student in an Organized Health Care Education/Training Program
DX: M51.16 Intervertebral disc disorders with radiculopathy, lumbar region (principal)
CPT/HCPCS: 99212; G0463

== ENCOUNTER 2022-09-02 14:08 | Emergency (ER) | payer MEDICAID, SELFPAY ==
[2022-09-02 14:50] VITALS: BP 134/73; PULSE 65; RESP 14; TEMP 36.5; O2SAT 98; BMI 19.8
--- NOTE | 2022-09-02 15:16 | EXP.UTC ---
Discharge Plan Disposition Patient Disposition: Home, Self-Care Condition: Good Prescriptions Prescriptions: New cephalexin [cephalexin] 500 mg tablet 500 mg PO BID 7 Days Qty: 14 0RF mupirocin 2 % ointment 1 applic topical BID Qty: 15 0RF No Action gabapentin 600 mg tablet 600 mg PO TID Qty: 90 2RF hydrocodone-acetaminophen 7.5-325 mg tablet 1 tab PO Q6H PRN (Reason: pain) Qty: 120 0RF Rx Instructions: Needs appt for refill after this Referrals Follow up/Referrals: Je Hearn MD [Primary Care Provider] - See instructions Clinical Impressions Clinical Impression: Abscess Discharge ED Provider: Nazario TorreRUST)Ruth [facility] HPI General Stated complaint: possible cyst on Lt side of face Mode of Arrival: Ambulatory Source of Information: Patient Limitations: No Limitations Time Seen by Provider: 09/02/22 15:16 Description of Symptoms (Recalled from Triage Doc. by RN): PATIENT C/O CYST ON LEFT CHEEK HEENT Symptoms (Recalled from RN notes): Yes Resp Symptoms (Recalled from RN notes): No Skin Symptoms (Recalled from RN notes): No MS Symptoms (Recalled from RN notes): No Functional Status (Recalled from RN notes): WNL History of Present Illness Provider Complaint: 42 yr old male presents for a cyst to the left cheek for 1 week Related Data Previous Rx's Medication Instructions Recorded gabapentin 600 mg tablet 600 mg PO TID Neuropathy #90 tabs 07/24/22 hydrocodone 7.5 mg-acetaminophen 1 tab PO Q6H PRN pain #120 tabs 08/24/22 325 mg tablet cephalexin 500 mg tablet 500 mg PO BID 7 days #14 tabs 09/02/22 mupirocin 2 % topical ointment 1 applic topical BID #15 grams 09/02/22 Allergies Allergy/AdvReac Type Severity Reaction Status Date / Time adhesive tape Allergy Severe blisters Verified 08/24/22 13:28 shellfish derived Allergy Severe Swelling Verified 08/24/22 13:28 of the Eye Worker's Comp Is this a Worker's Comp case?: No PFSH PFSH Social History , [employer]) Smoking Status: Current every day smoker tobacco type: cigarettes packs per day: 1 second hand exposure: No alcohol intake: never substance use type: marijuana current occupational status: employed Travel in the last 8 weeks: None household members: significant other housing: house number of children: 4 current occupational exposures/hazards: No caffeine: Yes ROS Obtained: Yes All systems reviewed & no additional complaints except as documented Constitutional Constitutional: Reports system reviewed and no additional complaints, except as documented and Denies fever(s) Eyes Eyes: Reports system reviewed and no additional complaints, except as documented ENT Ears, Nose, Mouth, and Throat: Reports system reviewed and no additional complaints, except as documented Cardiovascular Cardiovascular: Reports system reviewed and no additional complaints, except as documented Respiratory Respiratory: Reports system reviewed and no additional complaints, except as documented Gastrointestinal Gastrointestingal: Reports system reviewed and no additional complaints, except as documented Musculoskeletal Musculoskeletal: Reports system reviewed and no additional complaints, except as documented Integumentary/Breasts Skin/Breast: Reports system reviewed and no additional complaints, except as documented and Reports other Comments: cyst to left cheek Neurologic Neurologic: Reports system reviewed and no additional complaints, except as documented Endocrine Endocrine: Reports system reviewed and no additional complaints, except as documented Hematologic/Lymphatic Henatologic/Lymphatic: Reports system reviewed and no additional complaints, except as documented Allergic/Immunologic Allergic/Immunologic: Reports system reviewed and no additional complaints, except as documented Physical Exam General General appearance: alert and in no apparent distre
[2022-09-02 15:24] VITALS: BP 134/73; PULSE 65; RESP 14; TEMP 36.5; O2SAT 98
== END 2022-09-02 15:27 | disposition home or self-care (01) ==
PROVIDERS: Emergency Provider Nurse Practitioner Family; PCP Emergency Medicine
DX: L02.01 Cutaneous abscess of face (principal)
CPT/HCPCS: 99212; G0463

== ENCOUNTER → 2022-10-01 13:10 | Outpatient (CLI) | payer MEDICAID, SELFPAY ==
[2022-10-01 18:38] LABS: Amphetamine/Metha Screen,Urine Negative ng/ml (<1000); Barbiturates Screen,Urine Negative ng/ml (<200)
[2022-10-01 18:39] LABS: Benzodiazepines Screen,Urine Negative ng/ml (<200)
[2022-10-01 18:40] LABS: Cannabinoid Screen,Urine Positive ng/ml (<50); Cocaine Screen,Urine Negative ng/ml (<300)
[2022-10-01 18:41] LABS: Methadone Screen,Urine Negative ng/ml (<300)
[2022-10-01 18:42] LABS: Opiate Screen,Urine Negative ng/ml (<300)
[2022-10-01 18:43] LABS: Phencyclidine Screen,Urine Negative ng/ml (<25)
== END ==
PROVIDERS: PCP Emergency Medicine; Visit Provider Emergency Medicine
DX: Z79.899 Other long term (current) drug therapy (principal)
CPT/HCPCS: 80305

== ENCOUNTER → 2022-11-28 09:10 | Outpatient (CLI) | payer MEDICAID, SELFPAY ==
[2022-11-28 16:21] LABS: Amphetamine/Metha Screen,Urine Negative ng/ml (<1000); Barbiturates Screen,Urine Negative ng/ml (<200)
[2022-11-28 16:22] LABS: Benzodiazepines Screen,Urine Negative ng/ml (<200)
[2022-11-28 16:23] LABS: Cannabinoid Screen,Urine Positive ng/ml (<50); Cocaine Screen,Urine Negative ng/ml (<300)
[2022-11-28 16:24] LABS: Methadone Screen,Urine Negative ng/ml (<300)
[2022-11-28 16:25] LABS: Opiate Screen,Urine Negative ng/ml (<300); Phencyclidine Screen,Urine Negative ng/ml (<25)
== END ==
PROVIDERS: PCP Emergency Medicine; Visit Provider Emergency Medicine
DX: Z79.899 Other long term (current) drug therapy (principal)
CPT/HCPCS: 80305

== ENCOUNTER → 2023-01-23 23:00 | Outpatient (CLI) | payer MEDICAID, SELFPAY ==
[2023-01-23 19:11] LABS: Alanine Aminotransferase 24 U/L (12-78); Albumin Level 4.5 g/dl (3.5-5.0); Albumin/Globulin Ratio 1.8 (1.1-1.8); Alkaline Phosphatase 53 U/L (38-126); Anion Gap 11.3 mEq/L (5-15); Aspartate Amino Transferase 28 U/L (17-59); Bilirubin,Total 0.5 mg/dl (0.2-1.3); Blood Urea Nitrogen 17 mg/dl (9-20); Calcium 9.1 mg/dl (8.4-10.2); Carbon Dioxide 29 mmol/L (22.0-30.0); Chloride 100 mmol/L (98-107); Cholesterol 190 mg/dl (140-200); Estimated Glomerular Filt Rate 92 ml/min (>60); GFR (African American) 111 ML/MIN (>60); Globulin 2.5 g/dL (1.3-3.2); Glucose 121 mg/dl (74-100); HDL Cholesterol 48 mg/dl (40-60); Potassium 4.3 mmoL/L (3.5-5.1); Sodium 136 mmol/L (136-145); Triglycerides 152 mg/dl (30-150); VLDL Cholesterol 30 mg/dL (0-40)
[2023-01-23 19:22] LABS: Direct LDL Cholesterol 116.15 mg/dL (100-129)
[2023-01-23 19:28] LABS: 25-OH Vitamin D, Total 31.9 ng/mL (30-100)
[2023-01-23 19:31] LABS: Free T4 (Free Thyroxine) 1.27 ng/dl (0.78-2.19)
[2023-01-23 19:37] LABS: Basophils # 0.1 K/mm3 (0-0.2); Basophils % 0.8 % (0.1-2.0); Eosinophils # 0.4 K/mm3 (0.0-0.4); Eosinophils % 5.2 % (0.1-12.0); Lymphocytes # 1.6 K/mm3 (0.7-4.5); Lymphocytes % 23.6 % (10-50); Mean Corpuscular HGB Conc 32.7 g/dL (31.8-35.4); Mean Corpuscular Hemoglobin 32.8 pg (27.0-31.2); Mean Corpuscular Volume 100.3 fl (80-94); Mean Platelet Volume 10.1 fl (7.4-10.4); Monocytes # 0.4 K/mm3 (0.1-1.0); Neutrophils # 4.3 K/mm3 (1.8-7.8); Neutrophils % 64.4 % (37.0-80.0); Platelet Count 270 K/mm3 (142-424); Red Blood Count 5.48 M/mm3 (4.60-6.20); White Blood Count 6.7 K/mm3 (4.8-10.8)
[2023-01-23 19:42] LABS: Thyroid Stimulating Hormone 2.67 uIU/mL (0.465-4.68)
== END ==
PROVIDERS: PCP Emergency Medicine; Visit Provider Emergency Medicine
DX: R53.83 Other fatigue (principal); E55.9 Vitamin D deficiency, unspecified; Z79.899 Other long term (current) drug therapy
CPT/HCPCS: 80053; 80061; 82306; 84439; 84443; 85025

== ENCOUNTER → 2023-03-27 13:22 | Outpatient (CLI) | payer MEDICAID, SELFPAY ==
[2023-03-27 18:32] LABS: Amphetamine/Metha Screen,Urine Negative ng/ml (<1000); Barbiturates Screen,Urine Negative ng/ml (<200)
[2023-03-27 18:33] LABS: Benzodiazepines Screen,Urine Negative ng/ml (<200)
[2023-03-27 18:34] LABS: Cannabinoid Screen,Urine Positive ng/ml (<50); Cocaine Screen,Urine Negative ng/ml (<300)
[2023-03-27 18:35] LABS: Methadone Screen,Urine Negative ng/ml (<300)
[2023-03-27 18:36] LABS: Opiate Screen,Urine Negative ng/ml (<300); Phencyclidine Screen,Urine Negative ng/ml (<25)
== END ==
PROVIDERS: PCP Emergency Medicine; Visit Provider Emergency Medicine
DX: Z79.899 Other long term (current) drug therapy (principal)
CPT/HCPCS: 80305

== ENCOUNTER → 2023-05-22 16:54 | Outpatient (CLI) | payer MEDICAID, SELFPAY ==
[2023-05-22 13:19] LABS: Amphetamine/Metha Screen,Urine Negative ng/ml (<1000)
[2023-05-22 13:20] LABS: Barbiturates Screen,Urine Negative ng/ml (<200)
[2023-05-22 13:21] LABS: Benzodiazepines Screen,Urine Negative ng/ml (<200); Cannabinoid Screen,Urine Positive ng/ml (<50)
[2023-05-22 13:22] LABS: Cocaine Screen,Urine Negative ng/ml (<300)
[2023-05-22 13:23] LABS: Methadone Screen,Urine Negative ng/ml (<300); Opiate Screen,Urine Negative ng/ml (<300)
[2023-05-22 13:24] LABS: Phencyclidine Screen,Urine Negative ng/ml (<25)
== END ==
PROVIDERS: PCP Emergency Medicine; Visit Provider Emergency Medicine
DX: G62.9 Polyneuropathy, unspecified (principal)
CPT/HCPCS: 80305

== ENCOUNTER → 2023-07-23 22:48 | Outpatient (CLI) | payer MEDICAID, SELFPAY ==
[2023-07-23 14:58] LABS: Amphetamine/Metha Screen,Urine Negative ng/ml (<1000); Benzodiazepines Screen,Urine Negative ng/ml (<200)
[2023-07-23 14:59] LABS: Barbiturates Screen,Urine Negative ng/ml (<200)
[2023-07-23 15:00] LABS: Cannabinoid Screen,Urine Positive ng/ml (<50); Methadone Screen,Urine Negative ng/ml (<300)
[2023-07-23 15:01] LABS: Cocaine Screen,Urine Negative ng/ml (<300)
[2023-07-23 15:02] LABS: Opiate Screen,Urine Negative ng/ml (<300); Phencyclidine Screen,Urine Negative ng/ml (<25)
== END ==
PROVIDERS: PCP Emergency Medicine; Visit Provider Emergency Medicine
DX: M54.16 Radiculopathy, lumbar region (principal)
CPT/HCPCS: 80305

== ENCOUNTER → 2023-08-12 15:10 | Outpatient (CLI) | payer MEDICAID, SELFPAY | PROVIDERS: PCP Emergency Medicine; Visit Provider Emergency Medicine | DX: M79.672 Pain in left foot (principal); L02.91 Cutaneous abscess, unspecified | CPT/HCPCS: 87070; 87205 ==

== ENCOUNTER → 2023-09-23 16:12 | Outpatient (CLI) | payer MEDICAID, SELFPAY ==
[2023-09-23 18:33] LABS: Amphetamine/Metha Screen,Urine Negative ng/ml (<1000); Benzodiazepines Screen,Urine Negative ng/ml (<200)
[2023-09-23 18:34] LABS: Barbiturates Screen,Urine Negative ng/ml (<200); Methadone Screen,Urine Negative ng/ml (<300)
[2023-09-23 18:35] LABS: Cannabinoid Screen,Urine Positive ng/ml (<50)
[2023-09-23 18:36] LABS: Cocaine Screen,Urine Negative ng/ml (<300); Opiate Screen,Urine Negative ng/ml (<300)
[2023-09-23 18:37] LABS: Phencyclidine Screen,Urine Negative ng/ml (<25)
== END ==
PROVIDERS: PCP Emergency Medicine; Visit Provider Emergency Medicine
DX: Z79.899 Other long term (current) drug therapy (principal)
CPT/HCPCS: 80305

== ENCOUNTER 2023-11-25 17:39 | Emergency (ER) | payer MEDICAID, SELFPAY ==
[2023-11-25 17:50] VITALS: BP 132/74; PULSE 89; RESP 18; TEMP 36.8; O2SAT 99; BMI 19.8
--- NOTE | 2023-11-25 17:55 | XR_ITS ---
PROCEDURE INFORMATION: Exam: XR Lumbosacral Spine Exam date and time: 11/25/2023 6:09 PM Age: 43 years old Clinical indication: Low back pain; Patient HX: Fell on ice. ; Additional info: Fall TECHNIQUE: Imaging protocol: Radiologic exam of the lumbosacral spine. Views: 2 or 3 views. COMPARISON: MR LUMBAR SPINE WO CON 01/29/2022 7:42 AM FINDINGS: Bones/joints: Normal. No acute fracture. Mild scoliosis convex to the left. Soft tissues: Unremarkable. IMPRESSION: No acute findings.
--- NOTE | 2023-11-25 17:59 | EXP.UTC ---
Discharge Plan Disposition Patient Disposition: Home, Self-Care Condition: Good Prescriptions Prescriptions: New ibuprofen [IBU] 800 mg tablet 800 mg PO Q8HP PRN (Reason: Moderate Pain) Qty: 30 0RF No Action lidocaine 5 % adhesive patch,medicated 1 patch topical DAILY Qty: 30 0RF Rx Instructions: leave on most painful area for up to 12 hrs gabapentin 600 mg tablet 600 mg PO TID Qty: 90 1RF hydrocodone-acetaminophen 7.5-325 mg tablet 1 tab PO Q6H PRN (Reason: pain) Qty: 120 0RF Referrals Follow up/Referrals: Provider,Referral, MD [Primary Care Provider] - See instructions Activity Restrictions/Add. Instructions Additional Instructions/Restrictions: Take ibuprofen for pain (if you can take this). Follow up with your regular doctor. 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 Since then he has had left rib pain. He states that his pain is worse with deep breathing and coughing. He denies shortness of breath. He denies any other injury. Related Data Previous Rx's Medication Instructions Recorded lidocaine 5 % topical patch 1 patch topical DAILY #30 ea 01/23/23 gabapentin 600 mg tablet 600 mg PO TID Neuropathy #90 tabs 09/23/23 hydrocodone 7.5 mg-acetaminophen 1 tab PO Q6H PRN pain #120 tabs 09/23/23 325 mg tablet ibuprofen 800 mg tablet (IBU) 800 mg PO Q8HP PRN Moderate Pain 11/25/23 #30 tabs Allergies Allergy/AdvReac Type Severity Reaction Status Date / Time adhesive tape Allergy Severe blisters Verified 11/25/23 18:02 shellfish derived Allergy Severe Swelling Verified 11/25/23 18:02 of the Eye [facility] Disclaimer: The information contained in this section may have been updated after the patient was seen, as this information can be updated by other users. Medical History Anxiety Depression GERD (gastroesophageal reflux disease) HTN (hypertension), benign Migraine Surgical History History of colon resection Hx of myringotomy Hx of tonsillectomy Social History Smoking Status: Current every day smoker tobacco type: cigarettes packs per day: 1 second hand exposure: No alcohol intake: never substance use type: marijuana current occupational status: employed Travel in the last 8 weeks: None household members: significant other housing: house number of children: 4 current occupational exposures/hazards: No caffeine: Yes ROS Obtained: Yes All systems reviewed & no additional complaints except as documented Constitutional Constitutional: Denies chills and Denies fever(s) Eyes Eyes: Denies eye discharge ENT Ears, Nose, Mouth, and Throat: Denies dizziness, Denies otalgia and Denies sore throat Cardiovascular Cardiovascular: Reports as per HPI and Reports chest pain Respiratory Respiratory: Denies shortness of breath, Denies chest congestion, Denies cough, Denies stridor and Denies wheezing Gastrointestinal Gastrointestingal: Denies nausea or vomiting Musculoskeletal Musculoskeletal: Reports system reviewed and no additional complaints, except as documented and Denies arthralgias Integumentary/Breasts Skin/Breast: Denies rash Neurologic Neurologic: Denies dizziness and Denies paresthesias Allergic/Immunologic Allergic/Immunologic: Denies wheezing Physical Exam General General appearance: alert and in no apparent distress Head Head exam: atraumatic, normocephalic and normal inspection Eye Eye exam: Present normal appearance, PERRL and EOMI ENT ENT exam: Present normal exam, normal oropharynx, mucous membranes moist, TM's normal bilaterally and normal external ear exam Neck Neck exam: Present normal inspection, full ROM and trachea midline; Absent meningismus or lymphadenopathy Chest Chest inspection: Present symmetric chest wall rise and tenderness Respiratory Respiratory exam: Present normal lung sounds bilaterally; Absent respiratory distress, wheezes, stridor or accessory muscle use Cardiovascular Cardiovascular exam: Present regular rate and normal rhythm; Absent JVD Abdominal Exam Abdominal exam: Present soft and normal bowel sounds; Absent distention, tenderness or guarding Extremities Exam Extremities exam: Present normal inspection, full ROM and normal capillary refill; Absent calf tenderness Back Exam Back exam: Present normal inspection; Absent tenderness Neurological Exam Neurological exam: Present alert and oriented X3 Psychiatric Psychiatric exam: Present normal affect and normal mood Skin Skin exam: Present warm, dry, intact and normal color Lymphatic Lymphatic Findings: no adenopathy Medical Decision Making Medical Records Medical records reviewed: No I reviewed the patient's medical records. Yifan Inquiry Pt receiving controlled substance: No Orders (Tests/Meds): ORDERS Category Date Time Status XR lumbar spine 2-3V Stat Exams 11/25/23 17:55 Ordered XR ribs LT 2V Stat Exams 11/25/23 17:55 Ordered Radiology Data #1: Image(s): Chest Image Reviewed: Yes I reviewed the patient's radiology image and Yes I have reviewed radiologist's interpretation Preliminary Findings: Normal/NAD PROCEDURE INFORMATION: Exam: XR Left Ribs with PA Chest Exam date and time: 11/25/2023 6:05 PM Age: 43 years old Clinical indication: Chest wall pain; Left; Additional info: Fall TECHNIQUE: Imaging protocol: Radiologic exam of the left ribs with PA chest. Views: 3 views COMPARISON: CR XR CHEST 2V 03/17/2021 2:37 PM FINDINGS: Lungs: Unremarkable. No consolidation. Pleural spaces: Unremarkable. No pleural effusion. No pneumothorax. Heart/Mediastinum: Unremarkable. No cardiomegaly. Bones/joints: A few chronic right lateral rib fractures. IMPRESSION: No acute findings. #2: Image(s): L-Spine Image Reviewed: Yes I reviewed the patient's radiology image and Yes I have reviewed radiologist's interpretation Preliminary Findings: No Fracture Seen PROCEDURE INFORMATION: Exam: XR Lumbosacral Spine Exam date and time: 11/25/2023 6:09 PM Age: 43 years old Clinical indication: Low back pain; Patient HX: Fell on ice. ; Additional info: Fall TECHNIQUE: Imaging protocol: Radiologic exam of the lumbosacral spine. Views: 2 or 3 views. COMPARISON: MR LUMBAR SPINE WO CON 01/29/2022 7:42 AM FINDINGS: Bones/joints: Normal. No acute fracture. Mild scoliosis convex to the left. Soft tissues: Unremarkable. IMPRESSION: No acute findings.
[2023-11-25 18:57] VITALS: BP 132/74; PULSE 89; RESP 19; TEMP 36.8; O2SAT 99
== END 2023-11-25 18:57 | disposition home or self-care (01) ==
PROVIDERS: Emergency Provider Nurse Practitioner Family
DX: S20.212A Contusion of left front wall of thorax, initial encounter (principal); R07.81 Pleurodynia; W00.0XXA Fall on same level due to ice and snow, initial encounter; F17.210 Nicotine dependence, cigarettes, uncomplicated; K21.9 Gastro-esophageal reflux disease without esophagitis; I10 Essential (primary) hypertension
CPT/HCPCS: 71101; 72100; 99212; 99214; G0463

== ENCOUNTER 2023-11-27 12:44 | Outpatient (CLI) | payer MEDICAID, SELFPAY ==
[2023-11-27 16:33] LABS: Amphetamine/Metha Screen,Urine Negative ng/ml (<1000)
[2023-11-27 16:34] LABS: Barbiturates Screen,Urine Negative ng/ml (<200)
[2023-11-27 16:35] LABS: Benzodiazepines Screen,Urine Negative ng/ml (<200); Cannabinoid Screen,Urine Positive ng/ml (<50)
[2023-11-27 16:36] LABS: Cocaine Screen,Urine Negative ng/ml (<300)
[2023-11-27 16:42] LABS: Methadone Screen,Urine Negative ng/ml (<300)
[2023-11-27 16:43] LABS: Opiate Screen,Urine Negative ng/ml (<300); Phencyclidine Screen,Urine Negative ng/ml (<25)
[2023-11-30 15:56] LABS: Opiates Negative ng/mL (Cutoff=100)
[2023-12-01 17:23] LABS: Gabapentin,Urine 262.5 ug/mL (.)
== END 2023-11-27 23:59 ==
LOC: LAB.DROPOF 12:44
PROVIDERS: PCP Nurse Practitioner Family; Visit Provider Nurse Practitioner Family
DX: Z79.899 Other long term (current) drug therapy (principal); G62.89 Other specified polyneuropathies
CPT/HCPCS: 80307; 80361; G0480

== ENCOUNTER 2023-12-04 15:19 | Emergency (ER) | payer MEDICAID, SELFPAY ==
[2023-12-04] VITALS (9 sets, daily range): BP systolic 102–145; BP diastolic 56–97; PULSE 47–99; RESP 20–22; TEMP 36.7–36.8; O2SAT 84–100; BMI 19.8
--- NOTE | 2023-12-04 15:19 | ECG_ITS ---
APPROVED REPORT Exam: Resting ECG HR:90 bpm ECG Measurements Heart Rate 90 AXES MA 133 P 81 QRSd 84 QRS 76 QT 335 T 75 QTc 383 Conclusion SINUS RHYTHM RIGHT ATRIAL Abnormality MODERATE ST DEPRESSION [0.05+ mV ST DEPRESSION] ABNORMAL ECG UNCONFIRMED REPORT Electronically signed by : Glenn Aquino MD 12/04/2023 22:38:02
--- NOTE | 2023-12-04 15:23 | XR_ITS ---
PROCEDURE INFORMATION: Exam: XR Chest Exam date and time: 12/04/2023 3:44 PM Age: 43 years old Clinical indication: Injury or trauma; Fall; Blunt trauma (contusions or hematomas); Additional info: L rib FX last week, R/O pneumo TECHNIQUE: Imaging protocol: Radiologic exam of the chest. Views: 1 view. COMPARISON: CR XR RIBS LT MIN 3V W CXR1V 11/25/2023 6:05 PM FINDINGS: Lungs: Significant compressive changes of the left lung base are noted secondary to the large effusion. Pleural spaces: There is a moderate to large left pleural effusion. No pneumothorax. Heart/Mediastinum: Unremarkable. No cardiomegaly. Vasculature: Unremarkable. Bones/joints: Acute fractures of the lateral lower left ribs are again noted. Several old right rib fractures evident. IMPRESSION: 1. Interval development of a moderate to large left pleural effusion with significant compressive changes of the left lung base secondary to the pleural fluid. 2. Acute fractures of the lateral left lower ribs are again noted. 3. No pneumothorax.
--- NOTE | 2023-12-04 15:23 | CT_ITS ---
FINAL REPORT CLINICAL HISTORY: recent rib Fx on left, worsening pain and cough COMPARISON: None FINDINGS: CT CHEST without contrast COMPARISON: None . TECHNIQUE: Axial CT without IV contrast administration. FINDINGS: There is a moderate left pleural effusion present, with left lower lobe atelectasis. The airspace disease in the left lower lobe may represent a developing pneumonia. No evidence of pneumothorax is seen. The right lung is unremarkable in appearance. There are minimally displaced fractures of the left ninth, 10th, and 11th ribs, old. No pericardial effusion is seen . No adenopathy or mass lesion is present . IMPRESSION: Significant development of a left pleural effusion since the prior rib films of 11/25/2023. Airspace disease the left lower lobe may represent developing pneumonia and follow-up is suggested. No pneumothorax is present. This study was performed using automated techniques to achieve radiation exposure as low as reasonably achievable Reviewed, Interpreted and Dictated by Kate Sharma MD Transcribed by Krista Solorio Authenticated and [facility]
--- NOTE | 2023-12-04 15:26 | HMH.EDCP ---
Discharge Plan Disposition Patient Disposition: Xfer Short-Term Hosp Chief Complaint: Chest Pain Prescriptions Prescriptions: No Action lidocaine 5 % adhesive patch,medicated 1 patch topical DAILY Qty: 30 0RF Rx Instructions: leave on most painful area for up to 12 hrs hydrocodone-acetaminophen 5-325 mg tablet 1 tab PO Q6H PRN (Reason: pain) Qty: 120 0RF gabapentin 600 mg tablet 600 mg PO TID Qty: 90 0RF ibuprofen [IBU] 800 mg tablet 800 mg PO Q8HP PRN (Reason: Moderate Pain) Qty: 30 0RF Referrals Follow up/Referrals: Felton Pagan APRN [Primary Care Provider] - See instructions Clinical Impressions Clinical Impression: Hemothorax, left, Fall, Multiple closed fractures of ribs of left side Stand Alone Forms Stand Alone Forms: Transfer Record - ED Discharge ED Provider: Eris Chowdhury HPI General Chief Complaint: Chest Pain Stated Complaint: Chest Pain Time Seen by Provider: 12/04/23 15:23 History of Present Illness HPI narrative: 43-year-old male with history of previous right-sided rib fractures necessitating chest tube, recent diagnosis of rib fracture of the left side on 11/25 after a fall presenting with worsening chest pain. 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 Had worsening pain in the left side. Started radiating alongside his chest wall to his epigastrium and into his lateral chest wall just underneath his armpit. No nausea vomiting, shortness of breath, or diaphoresis. Patient does state that taking deep breaths makes it worse and twisting makes it worse. Laying on his right side makes it better. He is also a cough productive of green sputum, but no hemoptysis. Related Data Previous Rx's Medication Instructions Recorded lidocaine 5 % topical patch 1 patch topical DAILY #30 ea 01/23/23 ibuprofen 800 mg tablet (IBU) 800 mg PO Q8HP PRN Moderate Pain 11/25/23 #30 tabs gabapentin 600 mg tablet 600 mg PO TID Neuropathy #90 tabs 11/27/23 hydrocodone 5 mg-acetaminophen 325 1 tab PO Q6H PRN pain #120 tabs 11/27/23 mg tablet Allergies Allergy/AdvReac Type Severity Reaction Status Date / Time adhesive tape Allergy Severe blisters Verified 11/27/23 09:24 shellfish derived Allergy Severe Swelling Verified 11/27/23 09:[address] [facility] Disclaimer: The information contained in this section may have been updated after the patient was seen, as this information can be updated by other users. Medical History (Updated 12/04/23 @ 17:26 by Eris Chowdhury MD) Depression GERD (gastroesophageal reflux disease) HTN (hypertension), benign Migraine Surgical History History of colon resection Hx of myringotomy Hx of tonsillectomy Social History Smoking Status: Current every day smoker tobacco type: cigarettes packs per day: 1 second hand exposure: No alcohol intake: never substance use type: marijuana current occupational status: employed Travel in the last 8 weeks: None household members: significant other housing: house number of children: 4 current occupational exposures/hazards: No caffeine: Yes ROS Obtained: Yes All systems reviewed & no additional complaints except as documented Physical Exam General General appearance: alert Neck Neck exam: Present trachea midline Chest Chest inspection: Present normal inspection and symmetric chest wall rise Respiratory Respiratory exam: Present other (Decreased breath sounds left anterior and lateral lung kaiser inferiorly. Saturating appropriately but 100% on room air); Absent respiratory distress, wheezes, stridor, accessory muscle use or prolonged expiratory phase Cardiovascular Cardiovascular exam: Present regular rate and normal rhythm Extremities Exam Extremities exam: Absent edema Neurological Exam Neurological exam: Present alert, oriented X3 and CN II-XII intact Skin Skin exam: Present warm and dry; Absent cyanosis, diaphoresis or pallor HEART Score HEART Score HEART Score assessment performed?: No Procedures Limited Ultrasound Indication:: Limited lung ultrasound A focused ultrasound exam of the pleural spaces was performed to evaluate for pneumothorax, pulmonary edema, pleural effusion and/or consolidation. The ultrasound was performed with the following indications, as noted in the H&P: Dyspnea, chest pain Identified structures: Left and right thoracic cavities were examined. Findings: Lung sliding: -Absent on the left, present on the right B-lines: -Absent bilaterally Pleural effusion: -Present on the left with echogenic material concerning for hemothorax Impression: - Pneumothorax left/Right absent -Left-sided hemothorax Images were saved to permanent archive The study was technically adequate CPT 26395-00 This study was performed by me, and I personally interpreted all images/videos. Based on my clinical judgement, these images were adequate and did necessitate further imaging. Critical Care Critical Care Time Critical Care Time: Yes (msk, pulmonary) Attestation: On 12/04/23, the high probability of a clinically significant, sudden or life threatening deterioration of the following system(s) required my full and direct attention, intervention and personal management. The time I documented below is in addition to time spent performing reported procedures but includes the following listed in this critical care notation. Total Time Total Critical Care Time: 60 Medical Decision Making Medical Records Medical records reviewed: Yes I reviewed the patient's medical records. Yifan Inquiry Pt receiving controlled substance: No Yifan was queried for this patient: No Vital Signs Vital Signs: 12/04/23 15:16 12/04/23 15:30 12/04/23 15:30 Temperature 98.1 F Temperature Source Oral Pulse Rate 90 99 H Pulse Rate [Right] 98 H Respiratory Rate 20 20 Blood Pressure 128/76 Blood Pressure [Right Arm] 145/97 H Blood Pressure Mean 93 Blood Pressure Mean [Right Arm] 113 Blood Pressure Source [Right Arm] Automatic Cuff 02 Sat by Pulse Oximetry 99 97 Oxygen Delivery Method Room Air 12/04/23 16:50 Temperature Temperature Source Pulse Rate 62 Pulse Rate [Right] Respiratory Rate 20 Blood Pressure 107/74 L Blood Pressure [Right Arm] Blood Pressure Mean 79 Blood Pressure Mean [Right Arm] Blood Pressure Source [Right Arm] 02 Sat by Pulse Oximetry 100 Oxygen Delivery Method Lab Data Labs: Lab Results 12/04/23 15:23: VBG pH 7.31, VBG pCO2 56.1 H, VBG pO2 21.5 L, VBG HCO3 27.8, VBG Total CO2 29.5 H, VBG O2 Saturation 41.4 L, VBG Base Excess 1.6 12/04/23 15:26: WBC 15.6 H, RBC 4.64, Hgb 15.8, Hct 46.5, MCV 100.1 H, MCH 34.0 H, MCHC 34.0, RDW 12.6, Plt Count 292, MPV 7.3 L, Neut % (Auto) 78.7, Lymph % (Auto) 13.2, Ford % (Auto) 4.2, Eos % (Auto) 3.4, Baso % (Auto) 0.5, Neut # (Auto) 12.3 H, Lymph # (Auto) 2.1, [place] # (Auto) 0.7, Eos # (Auto) 0.5 H, Baso # (Auto) 0.1, Total Counted 100, Neutrophils % (Manual) 73, Lymphocytes % (Manual) 22, Monocytes % (Manual) 2, Eosinophils % (Manual) 3, Platelet Estimate Normal, Macrocytosis 1+, Sodium 140, Potassium 4.0, Chloride 101, Carbon Dioxide 33 H, Anion Gap 10.0, BUN 22 H, Creatinine 1.10, Estimated Creat Clear 82, Estimated GFR 73, Est GFR ( Amer) 88, Glucose 107 H, Calcium 9.0, Total Bilirubin 0.6, AST 40, ALT 29, Alkaline Phosphatase 55, Total Protein 7.1, Albumin 4.1, Globulin 3.0, Albumin/Globulin Ratio 1.4 12/04/23 16:13: Lactate 1.1 12/04/23 15:26 12/04/23 15:26 Response Orders (Tests/Meds): ED MEDICATIONS Discontinued Medications Generic Name Dose Route Start Last Admin Trade Name Parishq PRN Reason Stop Dose Admin Acetaminophen 1,000 mg 12/04/23 15:26 12/04/23 15:36 Acetaminophen 1,000mg/100ml Vial IV 12/04/23 15:27 1,000 mg ONCE ONE Administration Diphenhydramine HCl 50 mg 12/04/23 16:12 12/04/23 16:47 Diphenhydramine 50mg/Ml Vial IV 12/04/23 16:13 50 mg ONCE ONE Administration Hydromorphone HCl 0.5 mg 12/04/23 16:11 12/04/23 16:47 Hydromorphone 2mg/Ml Syringe IV 12/04/23 16:12 0.5 mg ONCE ONE Administration Iopamidol 100 ml 12/04/23 16:37 12/04/23 16:42 Iopamidol-370 (76%);100ml Bottle IV 12/04/23 16:38 100 ml ONCE ONE Administration Ketorolac Tromethamine 15 mg 12/04/23 15:26 12/04/23 15:36 Ketorolac 30mg/Ml Vial IV 12/04/23 15:27 15 mg ONCE ONE Administration Methylprednisolone Sodium Succinate 125 mg 12/04/23 16:12 12/04/23 16:47 Methylprednisolone Sod Succ 125mg Vial IV 12/04/23 16:13 125 mg ONCE ONE Administration Morphine Sulfate 4 mg 12/04/23 15:26 12/04/23 15:36 Morphine 4mg/Ml Syringe IV 12/04/23 15:27 4 mg ONCE ONE Administration Sodium Chloride 10 ml 12/04/23 16:37 12/04/23 16:42 Sodium Chloride 0.9% 10ml Syr (Rad Only) IV 12/04/23 16:38 10 ml ONCE ONE Administration Sodium Chloride 50 ml 12/04/23 16:37 12/04/23 16:41 0.9 % Sodium Chloride 50 Ml Vial IV 12/04/23 16:38 50 ml ONCE ONE Administration ORDERS Category Date Time Status CT angio chest - dissection Stat Cat Scan 12/04/23 16:[address] chest wo con Stat Cat Scan 12/04/23 15:23 Completed CXR --portable [XR chest portable] Stat Exams 12/04/23 15:23 Taken POCUS Point of Care (ER Only) Stat Exams 12/04/23 15:30 Taken CBC w/Auto Diff [Complete Blood Count Auto Diff] Stat Lab 12/04/23 15:26 Completed CMP [Comprehensive Metabolic Panel] Stat Lab 12/04/23 15:26 Completed Lactic Acid Stat Lab 12/04/23 16:13 Completed VBG [Venous Blood Gas] Stat RT 12/04/23 15:23 Completed ECG initial [place] Routine Y 12/04/23 15:19 Completed MDM Narrative Medical Decision Narrative: 43-year-old male with history of previous right-sided rib fractures necessitating chest tube, recent diagnosis of rib fracture of the left side on 11/25 after a fall presenting with worsening chest pain. 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 Had worsening pain in the left side. Started radiating alongside his chest wall to his epigastrium and into his lateral chest wall just underneath his armpit. No nausea vomiting, shortness of breath, or diaphoresis. Patient does state that taking deep breaths makes it worse and twisting makes it worse. Laying on his right side makes it better. He is also a cough productive of green sputum, but no hemoptysis. Patient states that he still smokes a pack a day. History was obtained via conversation with patient and chart review. On arrival, patient hemodynamically stable, alert, oriented x4, appropriate, GCS 15, moving all extremities spontaneously, pupils equal and reactive to light. Full physical exam performed and significant for well-appearing male in mild distress secondary to pain with motion. Better when laying still. Right lung clear to auscultation,. Differential includes rib fractures, pneumothorax, hemothorax, pulmonary contusion, pulmonary laceration, intercostal artery bleed, among others. Patient was given morphine, Toradol, [place] of for symptomatic management and correction of underlying abnormalities. Workup independently interpreted and significant for mild leukocytosis 15.6, likely stress degranulation. Hemoglobin 15.8. VBG nonactionable with pH 7.3. Kidney function normal, nonactionable chemistry. Chest x-ray large left-sided pleural effusion. CT chest with large left-sided pleural fluid collection average Hounsfield units 35-40 concerning for hemothorax. Ribs 9 through 11 fractured. See radiology read for full review of final results. Independent interpretation of EKG shows sinus rhythm 90 beats a minute without ST or T wave changes concerning for acute ischemia. CT, QRS, QT intervals within normal limits. [place] normal. Bedside [id number] ultrasound with large left-sided pleural effusion with mild to moderate echogenicity concerning for hemothorax. Heart score 0. On reevaluation, patient still in pain. Because patient was initially getting better, had acute worsening today with large left-sided pleural effusion, I had concern for possible intercostal artery laceration. CTA of the chest was ordered and, on independent interpretation, demonstrated hemothorax on the left side. No evidence of intercostal artery bleed. Patient did break ribs 9 through 11. [facility] was contacted and case was discussed at length, graciously excepted as transfer. Because patient high risk for clinical decompensation if discharged, deemed appropriate for transfer and inpatient admission. Results were relayed to patient who voiced understanding and patient was agreeable to transfer, inpatient admission, and management. Patient was graciously accepted and transferred to [facility] for further definitive management, under Dr. Lai.
[2023-12-04 15:36] LABS: Basophils # 0.1 K/mm3 (0-0.2); Basophils % 0.5 % (0.1-2.0); Eosinophils # 0.5 K/mm3 (0.0-0.4); Eosinophils % 3.4 % (0.1-12.0); Hematocrit 46.5 % (42.0-52.0); Hemoglobin 15.8 g/dL (14.1-18.0); Lymphocytes # 2.1 K/mm3 (0.7-4.5); Lymphocytes % 13.2 % (10-50); Mean Corpuscular Volume 100.1 fl (80-94); Mean Platelet Volume 7.3 fl (7.4-10.4); Monocytes # 0.7 K/mm3 (0.1-1.0); Monocytes % 4.2 % (1.7-9.3); Neutrophils # 12.3 K/mm3 (1.8-7.8); Neutrophils % 78.7 % (37.0-80.0); Platelet Count 292 K/mm3 (142-424); Red Blood Count 4.64 M/mm3 (4.60-6.20); Red Cell Distribution Width 12.6 % (11.5-17.5); White Blood Count 15.6 K/mm3 (4.8-10.8)
[2023-12-04] MEDS: KETOROLAC 30MG/ML VIAL 15 MG IV (15:36)
[2023-12-04] MEDS: MORPHINE 4MG/ML SYRINGE 4 MG IV (15:36)
[2023-12-04] MEDS: ACETAMINOPHEN 1,000MG/100ML VIAL 1000 MG IV (15:36)
[2023-12-04 15:39] LABS: MANUAL DIFFERENTIAL MANUAL DIFFERENTIAL (MANUAL DIFF)
[2023-12-04 15:40] LABS: Chloride 101 mmol/L (98-107); Sodium 140 mmol/L (136-145)
[2023-12-04 15:43] LABS: Alanine Aminotransferase 29 U/L (12-78); Albumin Level 4.1 g/dl (3.5-5.0); Albumin/Globulin Ratio 1.4 (1.1-1.8); Alkaline Phosphatase 55 U/L (38-126); Aspartate Amino Transferase 40 U/L (17-59); Bilirubin,Total 0.6 mg/dl (0.2-1.3); Blood Urea Nitrogen 22 mg/dl (9-20); Carbon Dioxide 33 mmol/L (22.0-30.0); Creatinine Clearance Estimated 82 mL/min (50-200); Estimated Glomerular Filt Rate 73 ml/min (>60); GFR (African American) 88 ML/MIN (>60); Total Protein,Serum 7.1 g/dl (6.3-8.2)
[2023-12-04 15:44] LABS: Glucose 107 mg/dl (74-100)
[2023-12-04 15:48] LABS: VBG Base Excess 1.6 mmol/L (-2.4-2.3); VBG HCO3 27.8 mmol/L (23-30); VBG Oxygen Saturation 41.4 % (50-70); VBG PCO2 56.1 mmol/L (35-51); VBG PH 7.31 mmol/L (7.31-7.41); VBG PO2 21.5 mmol/L (28-40); VBG Total CO2 29.5 mmol/L (23-27)
--- NOTE | 2023-12-04 16:00 | PC.NURSE ---
DR MCKEON AT BEDSIDE
[2023-12-04 16:06] LABS: Eosinophils % 3 % (0-3); Lymphocytes % 22 % (10-50); Macrocytosis 1+; Monocytes % 2 % (2-9); Neutrophils % 73 % (42-76); Platelet Estimate Normal; Total Cells Counted 100
--- NOTE | 2023-12-04 16:11 | CT_ITS ---
PROCEDURE INFORMATION: Exam: CTA Chest With Contrast Exam date and time: 12/04/2023 4:32 PM Age: 43 years old Clinical indication: Injury or trauma; Fall; Shortness of breath; Blunt trauma (contusions or hematomas); Patient HX: Seen in [facility] last Saturday, dx with left rib FX. Presents today with increased pain and SOA; Additional info: Rule out intercostal artery bleed. Rapid SOA TECHNIQUE: Imaging protocol: Computed tomographic angiography of the chest with contrast. Exam focused on the arteries. 3D rendering (Not supervised by radiologist): MIP and/or 3D reconstructed images were created by the technologist. Radiation optimization: All CT scans at this facility use at least one of these dose optimization techniques: automated exposure control; mA and/or kV adjustment per patient size (includes targeted exams where dose is matched to clinical indication); or iterative reconstruction. Contrast material: ISOVUE 370; Contrast volume: 100 ml; Contrast route: INTRAVENOUS (IV); COMPARISON: CT CHEST WO CON 12/04/2023 3:45 PM FINDINGS: Pulmonary arteries: No pulmonary embolus. No dissection or aneurysm in the chest. Aorta: Unremarkable. No aortic aneurysm. No aortic dissection. Other arteries: Visualized segments of the intercostal arteries appear intact without an area of definite nathalie extravasation of contrast. This does not entirely exclude active bleeding. Lungs: Unremarkable. No consolidation. No masses. Pleural spaces: Large intermediate attenuation left pleural fluid collection most consistent with hemothorax slightly higher attenuation masslike components inferiorly in the chest in area measuring up to 12 cm diameter. While this may all be hemorrhage, underlying mass here can not be excluded currently. No pneumothorax. Heart: Unremarkable. No cardiomegaly. No pericardial effusion. Lymph nodes: Unremarkable. No enlarged lymph nodes. Bones/joints: Acute lateral fractures of the left 9th 10th ribs and posteriorly of left 11th rib again evident with slight offset. Old rib fractures elsewhere. Soft tissues: Unremarkable. IMPRESSION: 1. No pulmonary embolus. No dissection or aneurysm in the chest. 2. Large intermediate attenuation left pleural fluid collection most consistent with hemothorax again evident with slightly higher attenuation masslike components inferiorly in the chest in area measuring up to 12 cm diameter. While this may all be hemorrhage, underlying mass here can not be excluded currently. 3. Visualized segments of the intercostal arteries appear intact without an area of definite nathalie extravasation of contrast. This does not entirely exclude active bleeding. 4. No pneumothorax. 5. Acute lateral fractures of the left 9th 10th ribs and posteriorly of left 11th rib again evident with slight offset.
[2023-12-04 16:31] LABS: Lactic Acid 1.1 mmol/L (0.7-2.1)
[2023-12-04] MEDS: 0.9 % SODIUM CHLORIDE 50 ML VIAL IV (16:41)
[2023-12-04] MEDS: SODIUM CHLORIDE 0.9% 10ML SYR (RAD ONLY) 10 ML IV (16:42)
[2023-12-04] MEDS: IOPAMIDOL-370 (76%);100ML BOTTLE 100 ML IV (16:42)
[2023-12-04] MEDS: METHYLPREDNISOLONE SOD SUCC 125MG VIAL 125 MG IV (16:47)
[2023-12-04] MEDS: HYDROMORPHONE 2MG/ML SYRINGE 0.5 MG IV (16:47)
[2023-12-04] MEDS: diphenhydrAMINE 50MG/ML VIAL 50 MG IV (16:47)
--- NOTE | 2023-12-04 16:59 | PC.NURSE ---
DR MCKEON SPEAKING WITH [employer]
--- NOTE | 2023-12-04 17:13 | PC.NURSE ---
placed call to [facility] for transfer, they will call back
--- NOTE | 2023-12-04 17:15 | PC.NURSE ---
DR MCKEON SPEAKING WITH [facility]
--- NOTE | 2023-12-04 17:18 | PC.NURSE ---
PT ACCEPTED BY DR HURLEY, ED
--- NOTE | 2023-12-04 17:19 | PC.NURSE ---
DR MCKEON AT BEDSIDE TO UPDATE PT AND FAMILY
--- NOTE | 2023-12-04 18:32 | PC.NURSE ---
Report called to MY Liang at [facility].
== END 2023-12-04 19:57 | disposition short-term general hospital (02) ==
PROVIDERS: Emergency Provider Emergency Medicine; PCP Nurse Practitioner Family
DX: J94.2 Hemothorax (principal); S22.42XA Multiple fractures of ribs, left side, initial encounter for closed fracture; R07.9 Chest pain, unspecified; I10 Essential (primary) hypertension; X50.1XXA Overexertion from prolonged static or awkward postures, initial encounter
CPT/HCPCS: 71045; 71250; 71275; 80053; 82803; 83605; 85007; 85025; 93005; 96374; 96375; 99291; J0131; Q9967